=== PATIENT | female | born 1950 | race Caucasian/White ===

== ENCOUNTER 2021-11-03 09:48 | Outpatient (CLI) | payer MEDICARE, SELFPAY ==
[2021-11-03 13:57] LABS: Chloride* 102 mmol/L (96-114); Potassium* 4.2 mmol/L (3.6-5.1); Sodium* 138 mmol/L (135-149)
[2021-11-03 13:59] LABS: Cholesterol* 182 mg/dL (90-199); Creatinine* 0.6 mg/dL (0.5-1.5); Estimated Glomerular Filt Rate 95 ml/min
[2021-11-03 14:00] LABS: Blood Urea Nitrogen* 12 mg/dL (7-30); Calcium* 9.2 mg/dL (8.4-10.6); Carbon Dioxide* 29 mmol/L (20-32); Glucose* 106 mg/dL (60-115); HDL Cholesterol* 60 mg/dL (>=50); LDL Cholesterol Calculated 99 mg/dL (<100); Triglycerides* 115 mg/dL (40-149)
== END 2021-11-03 09:49 | disposition home or self-care (01) ==
PROVIDERS: PCP Family Medicine; Visit Provider Family Medicine
DX: Z00.00 Encounter for general adult medical examination without abnormal findings (principal); I10 Essential (primary) hypertension; E78.5 Hyperlipidemia, unspecified
CPT/HCPCS: 80048; 80061

== ENCOUNTER 2022-01-04 12:43 | Outpatient (CLI) | payer MEDICARE, SELFPAY ==
--- NOTE | 2022-01-04 13:20 | CRLHL7_ITS ---
For Patients: As a result of the Century Cures Act, medical imaging exams and procedure reports are released immediately into your electronic medical record. You may view this report before your referring provider. If you have questions, please contact your health care provider. BILATERAL SCREENING MAMMOGRAM WITH COMPUTER-AIDED DETECTION TECHNIQUE: CC and MLO views were obtained. These mammographic images have been obtained using full-field digital technique. These mammographic images were interpreted with the benefit of computer-aided detection. COMPARISON FILM: 11/20/19, 09/25/18, 09/21/17. FINDINGS: There are scattered areas of fibroglandular density IMPRESSION: There is no radiographic evidence for malignancy. ASSESSMENT: BI-RADS Category 1: Negative RECOMMENDATION: Routine screening mammogram in 1 year. A lay language report of this examination will be provided to the patient. Obed Reilly M.D. Diagnostic Radiologist [email or web address]/mat / be/Dictated by: Obed Reilly MD @ 01/08/2022 8:18:00 AM (Electronically Signed)
== END 2022-01-04 12:44 | disposition home or self-care (01) ==
LOC: MAMMO 12:44
PROVIDERS: PCP Family Medicine; Visit Provider Family Medicine
DX: Z12.31 Encounter for screening mammogram for malignant neoplasm of breast (principal)
CPT/HCPCS: 77063; 77067

== ENCOUNTER 2022-11-05 09:15 | Outpatient (CLI) | payer MEDICARE, SELFPAY | END 2022-11-05 09:16 | disposition home or self-care (01) | PROVIDERS: PCP Family Medicine; Visit Provider Family Medicine | DX: Z00.00 Encounter for general adult medical examination without abnormal findings (principal); I10 Essential (primary) hypertension; E78.5 Hyperlipidemia, unspecified; Z13.0 Encounter for screening for diseases of the blood and blood-forming organs and certain disorders involving the immune mechanism; Z13.89 Encounter for screening for other disorder | CPT/HCPCS: 80048; 80061 ==

== ENCOUNTER 2022-11-22 11:42 | Outpatient (CLI) | payer MEDICARE, SELFPAY ==
--- NOTE | 2022-11-22 07:54 | W.ANESCHARGE ---
Anesthesia Charges Start Date/Time Anesthesia Start Date: 11/22/22 Anesthesia Start Time: 13:21 Stop Date/Time Anesthesia Stop Date: 11/22/22 Anesthesia Stop Time: 13:57 Summary Extremes of Age - Over 70 or under 1: MDA
--- NOTE | 2022-11-22 14:01 | W.ANESCHARGE ---
Anesthesia Charges Start Date/Time Anesthesia Start Date: 11/22/22 Anesthesia Start Time: 13:21 Stop Date/Time Anesthesia Stop Date: 11/22/22 Anesthesia Stop Time: 13:57 Summary Extremes of Age - Over 70 or under 1: [employer]OR [employer]
== END 2022-11-22 11:43 | disposition home or self-care (01) ==
PROVIDERS: PCP Family Medicine; Visit Provider Surgery
DX: Z12.11 Encounter for screening for malignant neoplasm of colon (principal); D49.0 Neoplasm of unspecified behavior of digestive system; Z86.010 Personal history of colon polyps
CPT/HCPCS: 45380; 45381; 811; 88305; 88341; 88342; 99100; J2405; J2704

== ENCOUNTER 2022-12-02 15:10 | Outpatient (CLI) | payer MEDICARE, SELFPAY | END 2022-12-02 15:11 | disposition home or self-care (01) | LOC: NFLDREF 15:13 | PROVIDERS: PCP Family Medicine; Visit Provider Surgery | DX: Z01.818 Encounter for other preprocedural examination (principal); C18.9 Malignant neoplasm of colon, unspecified | CPT/HCPCS: 82378 ==

== ENCOUNTER 2022-12-03 10:08 | Outpatient (CLI) | payer MEDICARE, SELFPAY ==
--- NOTE | 2022-12-03 11:00 | CRLHL7_ITS ---
For Patients: As a result of the 21st Century Cures Act, medical imaging exams and procedure reports are released immediately into your electronic medical record. You may view this report before your referring provider. If you have questions, please contact your health care provider. Indication: Colon cancer Technique: Postcontrast CT chest, abdomen and pelvis. 57 cc Isovue 370 intravenous contrast. Please note that all CT scans at this facility use dose modulation, iterative reconstruction, and/or weight-based dosing when appropriate to reduce radiation dose to as low as reasonably achievable. Comparison: None Findings: In the chest, bilateral thyroid nodules are present measuring 1.7 cm the left and 0.8 cm on the right. No mediastinal, hilar or axillary adenopathy. Mild atherosclerotic changes noted. Calcified left hilar lymph nodes are present representing sequela of granulomatous disease. Calcified granuloma within the lingula also noted. Linear subsegmental scarring is present within both lung apices. 2 millimeter nodular density right lower lobe, 3/44. Ground-glass nodule within the right middle lobe measuring 8.8 millimeters, 3/42. Subtle sclerotic focus is present measuring 12 millimeters within the T8 vertebral body. An additional sclerotic focus is present within the T3 vertebral body. No pathologic fracture. In the abdomen, there is a subtle area of decreased density within the left hepatic lobe measuring 1.1 cm. A subcentimeter hypodensity within the right hepatic lobe is also presence measuring 7 millimeters. The adrenal glands are normal. No solid renal mass or hydronephrosis. 6 millimeters simple cyst is noted within the left kidney. The spleen is within normal limits. No hiatal hernia. Pancreatic parenchyma is normal. Normal gallbladder. Atherosclerotic changes. No aneurysm. No enlarged retroperitoneal or mesenteric lymph nodes. In the pelvis, the bladder is normal. There is a small calcified uterine fibroid. No adnexal mass. No bowel obstruction. The terminal ileum appears normal. Severe degenerative disc disease L4-5 and L5-S1 with extensive discogenic sclerosis. No compression fracture. Tiny lymph nodes are present adjacent to the posterior aspect of the ascending colon measuring less than 5 millimeters. No pelvic sidewall or inguinal adenopathy. Impression: A few tiny 5 millimeter or less lymph nodes are noted adjacent to the mid ascending colon. No bowel obstruction. There are 2 small indeterminate foci of decreased attenuation within the liver, measuring 1.1 cm in the left hepatic lobe and 7 millimeters in the right hepatic lobe. Further evaluation with liver MRI may be useful. Indeterminate ground-glass nodule in the right middle lobe measuring 8.8 millimeters. Additional 2 millimeter nodule right lower lobe is present. Indeterminate foci of increased density within the T3 and T8 vertebral bodies. PET-CT may be useful for the 8.8 millimeter ground-glass nodule within the right lung and for the T3 and T8 foci. Please note that all CT scans at this facility use dose modulation, iterative reconstruction, and/or weight-based dosing when appropriate to reduce radiation dose to as low as reasonably achievable. Dictated by Obed Reilly MD @ 12/06/2022 4:38:40 PM (Electronically Signed)
== END 2022-12-03 10:09 | disposition home or self-care (01) ==
LOC: CT 10:10
PROVIDERS: PCP Family Medicine; Visit Provider Surgery
DX: C18.9 Malignant neoplasm of colon, unspecified (principal); K76.9 Liver disease, unspecified; R91.8 Other nonspecific abnormal finding of lung field
CPT/HCPCS: 71260; 74177; Q9967

== ENCOUNTER 2022-12-17 08:21 | Outpatient (CLI) | payer MEDICARE, SELFPAY ==
--- NOTE | 2022-12-17 08:45 | CRLHL7_ITS ---
For Patients: As a result of the Century Cures Act, medical imaging exams and procedure reports are released immediately into your electronic medical record. You may view this report before your referring provider. If you have questions, please contact your health care provider. INDICATION: Colon cancer; history provided liver mets ; Liver lesions on CT of the chest, abdomen and pelvis; further assessment. COMPARISON: CT chest, abdomen and pelvis December 03, 2022. TECHNIQUE: MR of the liver without and with intravenous contrast ; Precontrast T1 and T2 weighted imaging; T2 haste imaging; diffusion weighted imaging; in and out of phase imaging; postcontrast imaging; 15 cc of dotarem contrast was injected; poor study quality on the post contrast imaging secondary to significant respiratory motion. Findings : A 1.5 x 1 cm lesion in segment 3 of the liver which has high signal on the precontrast T2 haste imaging and low signal on the precontrast T1 weighted imaging with enhancement postcontrast administration; this most likely represents a hemangioma; because of the degradation of the quality of the study postcontrast imaging, this needs further followup either with a CT or MR with contrast using hemangioma protocol. A 7 mm cyst identified in the dome of the liver. No other focal hepatic pathology. No pancreatic pathology. Gallbladder is unremarkable. No adrenal pathology. Kidneys are unremarkable. IMPRESSION: 1. 1.5 x 1 cm probable hemangioma segment 3 of the liver; Followup MR or CT with intravenous contrast using hemangioma protocol suggested at in 3 months. 2. 7 mm cyst in the dome of the liver. 3. No obvious metastatic disease identified in the liver; post contrast imaging quality is suboptimal secondary to significant respiratory motion. Dictated by Kody Boles MD @ 12/23/2022 5:01:50 AM (Electronically Signed)
== END 2022-12-17 08:22 | disposition home or self-care (01) ==
LOC: MRI 08:22
PROVIDERS: PCP Family Medicine; Visit Provider Surgery
DX: C18.9 Malignant neoplasm of colon, unspecified (principal); K76.89 Other specified diseases of liver
CPT/HCPCS: 74183; A9575

== ENCOUNTER 2022-12-23 16:15 | Outpatient (CLI) | payer MEDICARE, SELFPAY ==
--- NOTE | 2022-12-23 17:00 | CRLHL7_ITS ---
For Patients: As a result of the 21st Century Cures Act, medical imaging exams and procedure reports are released immediately into your electronic medical record. You may view this report before your referring provider. If you have questions, please contact your health care provider. EXAM: PET-CT SKULL BASE TO THIGH CLINICAL INFORMATION: 72-yo female with newly diagnosed adenocarcinoma of the ascending colon detected on surveillance colonoscopy. Patient is referred for further characterization. TECHNIQUE: Radiopharmaceutical: 12.9 mCi of 18F-FDG Intravenous injection site: RAC Uptake time: 61 minutes Blood glucose level at the time of injection: 79 mg/dL Field of view: Skull base to mid-thighs CT protocol: The low-dose, free-breathing, noncontrast CT performed as part of this study is designed for the purposes of attenuation correction and lesion localization, and it is neither sufficient, nor it should be substituted for diagnostic purposes. COMPARISON: CT chest abdomen pelvis 12/03/2022. MRI abdomen 12/17/2022 FINDINGS: Physiologic background liver standardized uptake value (SUV mean and SUV max) reported for comparison between PET studies: 2.2 and 3.1. Visualized head and neck: Physiologic uptake in the visualized portions of the brain. Bilateral thyroid cysts/nodules without suspicious uptake. For example: Low-density left thyroid nodule, 1.5 cm, SUV max 1.0 Head and neck lymph nodes: No abnormal uptake. Lungs: Biapical scarring. No abnormal left lung uptake. Lateral right middle lobe ground-glass nodule demonstrates low level uptake, 0.9 cm, SUV max 0.5 (series 202, image 80). Additional micronodules in each lung demonstrate no abnormal uptake overall considered too small to definitively characterize. Benign calcified left upper lobe nodule. No consolidation. Thoracic lymph nodes: Calcified mediastinal lymph nodes. No enlarged or hypermetabolic mediastinal, hilar or axillary lymph nodes. Other chest findings: Scattered thoracic aortic calcifications. Generalized nonfocal esophageal uptake is nonspecific, possibly reactive/inflammatory or related to reflux. Hepatobiliary: No tracer avid liver lesions. No dilated intrahepatic bile ducts. Spleen: No abnormal uptake. No splenomegaly. Pancreas: No abnormal uptake. Adrenals: Similar bilateral adrenal configuration with variable uptake. For example: Left adrenal gland SUV max 3.0. Right adrenal gland SUV max 2.8. Nonspecific. Left adrenal uptake approaches background liver SUV max but does not exceed. Kidneys and bladder: No abnormal uptake or obstruction. Nondistended bladder with generalized wall thickening limits evaluation. Bowel and peritoneum: No suspicious gastric or small bowel uptake. Terminal ileum is unremarkable. There is uptake throughout the ascending colon extending to the hepatic flexure. More intense uptake associated with mild wall thickening is noted in the mid ascending colon potentially representing the site of recent biopsy positive for adenocarcinoma, SUV max 11.9 (fused image 156). Correlate with colonoscopy results and final pathology report. Pelvic organs: No abnormal uptake. Uterine calcifications may represent small fibroids. Abdominopelvic lymph nodes: No enlarged hypermetabolic abdominopelvic lymph nodes. Musculoskeletal, soft tissues, skin: No suspicious tracer avid osseous lesions. Degenerative type uptake within the right shoulder and spine. Other: Scattered aortoiliac atherosclerotic vascular calcifications. IMPRESSION: 1. Increased uptake throughout the ascending colon with mild wall thickening and intense uptake evident in the mid ascending colon potentially representing the site of recent positive biopsy for primary adenocarcinoma of the colon. No enlarged or hypermetabolic abdominal, retroperitoneal or pelvic lymph nodes. 2. Lateral right middle lobe ground-glass nodule with low level uptake is indeterminate. Attention on short-term imaging follow-up. 3. Bilateral cysts/nodules in each lobe of the thyroid without asymmetric or suspicious uptake. Additional ultrasound imaging can be considered. 4. No abnormal uptake in the neck, solid organs of the upper abdomen or osseous structures. 5. Other nonacute findings as detailed in the body of the report. Dictated by Ted Jacobo MD @ 01/01/2023 10:10:41 PM (Electronically Signed)
== END 2022-12-23 16:16 | disposition home or self-care (01) ==
LOC: RAD 16:16
PROVIDERS: PCP Family Medicine; Visit Provider Surgery
DX: C18.2 Malignant neoplasm of ascending colon (principal); E04.1 Nontoxic single thyroid nodule
CPT/HCPCS: 78815; A9552

== ENCOUNTER 2022-12-31 15:12 | Outpatient (CLI) | payer MEDICARE, SELFPAY | END 2022-12-31 15:13 | disposition home or self-care (01) | LOC: LONREF 15:13 | PROVIDERS: PCP Family Medicine; Visit Provider Family Medicine | DX: Z01.818 Encounter for other preprocedural examination (principal); C18.9 Malignant neoplasm of colon, unspecified | CPT/HCPCS: 80053 ==

== ENCOUNTER 2023-01-20 06:58 | Inpatient (IN) | payer MEDICARE, SELFPAY ==
[2023-01-20] VITALS (23 sets, daily range): BP systolic 97–122; BP diastolic 49–58; PULSE 71–100; RESP 12–16; TEMP 36.1–37.2; O2SAT 92–99; BMI 23.2
[2023-01-20] MEDS: SODIUM CHLORIDE 0.9 % (FLUSH) 10 ML SYRINGE IVF (07:45)
[2023-01-20] MEDS: LACTATED RINGERS 1000 ML 1,000 ML 100 ML IV ×3 (07:45→11:16)
[2023-01-20] MEDS: ERTAPENEM 1 GM inj IVPB (08:32)
[2023-01-20] MEDS: BUPIVACAINE 0.5% 30 ML 4 ML INJECTION (08:58)
--- NOTE | 2023-01-20 09:13 | SUR.OPER ---
PATIENT QUESTIONS ANSWERED SATISFACTORILY PREOPERATIVELY. PATIENT BROUGHT TO OR #4 PER CART. Patient positioned supine on OR #4 bed. The perioperative team supported arms bilaterally on arm boards. Final approval of positioning by surgeon.
--- NOTE | 2023-01-20 09:32 | P.NB_ITS ---
Nerve Block Nerve Block Time Seen by Provider: 08:29 Date Seen: 01/20/23 Type of block requested by surgeon for post-operative analgesia: TAP Side: bilateral Time out performed: Yes Verification of patient name: Yes Verification of date of : Yes Site marking: site marked Name of person performing procedure: Enrique Continuous monitoring Was continuous monitoring of O2 sat, B/P, color television console monitor, recorded every 15 minutes?: Yes Procedure Checklist: sterile prep, needles and gloves Ultrasound guided. Images saved: Yes Medications given in 5ml increments after negative aspiration: Marcaine %: 0.25 mL: 30 Needle gauge: 20 and Exparel mL: 10 Patient tolerated procedure well: Yes Additional comments: Needle noted adjacent to nerve Block Charges Block Charge (with Pro Fee): TAP Bilateral Use of Ultrasound Machine for Block: Yes- US Guidance/pain block
--- NOTE | 2023-01-20 09:32 | W.ANESCHARGE ---
Anesthesia Charges Start Date/Time Anesthesia Start Date: 01/20/23 Anesthesia Start Time: 08:20 Stop Date/Time Anesthesia Stop Date: 01/20/23 Anesthesia Stop Time: 11:36 Summary Extremes of Age - Over 70 or under 1: MDA
[2023-01-20] MEDS: BUPIVACAINE 0.25% 30 ML 6 ML INJECTION (11:07)
--- NOTE | 2023-01-20 11:15 | P.GSOP_ITS ---
Operative Note Pre-op diagnosis: Right-sided colon adenocarcinoma Post-op diagnosis: Same Type of Procedure: Laparoscopic right hemicolectomy Indications: The patient is a 72-year-old female who was found to have a adenocarcinoma of her right colon seen on colonoscopy. Staging workup did not reveal metastatic disease. Colectomy was recommended. Please see Dr. Perdomo's documentation of p re-operative discussion. Procedure Description: I arrived to the OR after Dr. Perdomo had placed the ports. I assisted with retraction of the cecum anteriorly while Dr. Perdomo dissected out the ileocolic pedicle. Once the vessels were visible, This was divided with a vascular load Endo-TAM stapler. There was a 2nd small vessel posterior to the 1st which was also divided with a vascular load staple. The staple lines were inspected for bleeding. Hemostasis appeared excellent. Dr. Perdomo then developed the retroperitoneal plane starting medially and progressing laterally. I again provided retraction of the cecum anteriorly while she dissected retroperitoneally. The duodenum was identified as the medial aspect of the dissection plane. Once this was dissected out, attention was turned and inferolaterally. First, Dr. Perdomo placed a Ray-Malka in the abdomen in the posterior dissection space to help identify the plane of dissection from the lateral aspect. I then retracted the cecum superiorly while Dr. Perdomo took down the lateral abdominal attachments of the cecum, appendix and terminal ileum. She reached her previous dissection plane. She took this up to the hepatic flexure. Again, I reflected the cecum and ascending colon medially to facilitate this. Once this was done we turned our attention to the superior portion of dissec tion. Then I grasped gastrocolic ligament just below the stomach and Dr. Perdomo grasped at the transverse colon. This was lifted up and she incised this using Harmonic scalpel. There was adhesions between the colon and the gallbladder in the right upper quadrant, however Dr. Perdomo was able to carefully dissect through these attachments using the Harmonic scalpel. I provided gentle retraction of the gallbladder. Once this was done, Dr. Perdomo was able to connect the posterior dissection with the superior dissection by completely dividing the with the fibers between the colon and retroperitoneum in the area of the duodenum. Once this was done, now with the dissection complete, I grasped the cecum and the sponge that was placed in the abdomen. Dr. Perdomo then created a periumbilical incision and dissected through the subcutaneous fat and fascia using cautery. The abdomen was entered. An Michel wound retractor was placed in the wound. I then delivered the specimen and the sponge through the wound. Dr. Frankel identified the middle colic vein and the right branch. She identified the tumor by palpation and then an area of healthy bowel on the transverse colon that was greater than 5 cm distal to the tattoo. Dr. Perdomo fully dissected the pericolonic fat away from the segment of bowel. I divided this with cautery. Once this was done she created a mesenteric window and through this fired a blue load TAM stapler. A small amount of bleeding on the mesentery was controlled with suture. Once this was divided, the mesentery was then divided by Dr. Perdomo using clamps and ties. She then identified well perfused area of ileum approximately 10 cm proximal to the ileocecal valve. Mesenteric window was created and again she fired a blue load TAM stapler across the bowel. The staple line was not bleeding. She then divided the mesentery again with clamps and ties. The specimen was passed off the field. This was later examined by Dr. Perdomo and found to contain the tumor. At this point we prepared to create the anastomosis. Towels were laid around the wound opening. Dr. Perdomo placed the 2 ends of bowel together. A stay stitch was placed. She then created a colotomy and enterotomy in each end of the bowel and through this was passed a blue load stapler. This was positioned to create approximately 80 cm anastomosis. I fired the stapler after confirming that th ere was no intervening bowel or other intra-abdominal structures between the ends of the staple and after confirming the staplers position on each end of the bowel. Dr. Perdomo then placed 2 crotch stitches. I removed the stapler and the anastomosis was examined for bleeding. There was none. I then assisted in exposure well Dr. Perdomo closed the common enterotomy with interrupted Lembert sutures. Once this was done the anastomosis was examined for patency which was excellent. This was then placed back into the abdomen. A clean set of instruments was obtained. Outer gloves were also exchanged. Dr. Perdomo then closed the fascia using 1. PDS in a running fashion. The abdomen was again insufflated and examined for hemostasis. There was no significant bleeding noted in the abdomen. This point I turned the case over to Dr. Perdomo. Sterile dressings were then applied. ? The patient was then woken and transported to the recovery area in stable condition. ? The patient tolerated the procedure well. Findings: Tumor noted in mid ascending colon. Anesthesia: GETA Surgeon: Mabel Perdomo MD Co-Surgeon: Kerrie Godinez MD Estimated blood loss (mL): 20 Additional Specimen Information: Right colon and terminal ileum Condition: stable Disposition: PACU Date of procedure: 01/20/23 Colon Resection Operation Performed with Curative Intent: Yes Tumor location: Ascending colon Extent of colon and vascular resection: Right hemicolectomy-ileocolic, right colic (if present)
--- NOTE | 2023-01-20 11:42 | P.ANES_ITS ---
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
--- NOTE | 2023-01-20 11:53 | P.GSOP_ITS ---
Operative Note Pre-op diagnosis: Adenocarcinoma of the colon, ascending Post-op diagnosis: Same Type of Procedure: Laparoscopic right hemicolectomy with extracorporeal anastomosis Indications: Patient is a 72-year-old female who presented to clinic with new diagnosis adenocarcinoma of the colon. Please see consultation note for full workup and discussion regarding treatment options. Risks and benefits of operative intervention were discussed at length with the patient. Risks included but was not limited to: Bleeding, infection, risk of damage to surrounding structures, possible need for additional procedures, possible need to convert to an open operation and postoperative complications such as pneumonia, pulmonary emboli or DE. All questions and concerns were addressed with the patient agreeing to proceed. Procedure Description: After discussing the risks and benefits of the procedure, the patient signed informed consent.? The operative site was marked and the patient was brought to the operating room and placed on the operating table in supine position.? Care was taken to pad the patient's pressure points.?? The patient was then intubated by anesthesia.? A tap block was placed by Anesthesia, to assist with postoperative pain. A Moser was placed under sterile conditions.? The operative site was then prepped and draped in the usual sterile fashion.? A time-out was then performed. A 5 mm Visiport was used to access the abdomen in the left upper quadrant. This was done under direct visualization. The abdomen was then insufflated and briefly surveyed, with no evidence of injury. I placed an additional 5 mm port just superior to the umbilicus and inferior suprapubic. A 12 mm port was placed in the left lower quadrant. The patient was then placed in right side up and Trendelenburg position. The small bowel was displaced from the pelvis and placed on the left side of the abdomen. At this point in the operation Dr. Godinez did scrub into the procedure. With Dr. Godinez assisting with retraction, an epiploic appendage of the cecum was used to retract up the cecum and terminal ileum lateral and towards the abdominal wall. This retraction allowed for identification of the ileocolic vascular pedicle. The peritoneum of the mesentery was incised with the Harmonic device. I then continued dissection of the peritoneum along the mesentery overlying the vessels. The ileocolic artery was identified and carefully dissected out. I then used a laparoscopic vascular staple load to transect the ileocolic artery near the takeoff from the IVC. The ileocolic vein was dissected out in a similar manner and transected with an additional vascular staple load. Hemostasis of the vascular pedicle was excellent. With Dr. Godinez assisting with retraction I then continued dissecting medially underneath the mesentery cephalad and laterally. The duodenum was initially difficult to identify, given the presence of tattoo within the abdomen, but we were eventually able to identify it as the medial border of our dissection plane and care was taken to make sure that it was safe from inadvertent injury. The dissection was continued cephalad until the border of the liver was identified. At this point I placed a Ray-Malka into the abdomen and into this dissected space. We then focused our retraction and dissection laterally along the white line of Toldt. Dr. Godinez assisted with retraction of the ascending colon medially while I dissected free the lateral attachments starting at the terminal ileum and ex tending towards the hepatic flexure. I was able to easily identify the medial plane of dissection and connect this laterally. While taking down the hepatic flexure the transverse colon was stuck with scar tissue underneath the liver into the gallbladder, making this portion of the dissection difficult. The patient was placed in reverse Trendelenburg. We carefully dissected free the transverse colon from the gallbladder and the underlying aspect of the liver, with no evidence of injury to either of these structures. The transverse colon was taken off completely from the underlying retroperitoneal structures. The omentum was then taken off the superior aspect of the transverse colon and the lesser sac was entered. Again the duodenum was identified and care was ensured that it stayed out of our operative field. We then continued this dissection laterally to connect with what had previously been done. At this point the hepatic flexure was completely mobilized, as well as the ascending colon. Once the dissection was complete Dr. Godinez used a grasper to grasp the cecum and the sponge that was within the abdomen. I created a periumbilical incision and dissected through the subcutaneous fat and fascia with cautery. The abdomen was entered and and a medium Michel wound retractor was placed in the wound. We were then able to easily deliver the specimen and the sponge through the wound. The specimen was examined and the right branch of the middle colic artery and vein identified. This was doubly ligated with silk suture. The tumor was easily palpated in the ascending colon, and appeared greater than 5 cm distal and proximal to our margins. I dissected the pericolonic fat away from the transverse colon with cautery. A mesenteric window was created and the transver se colon divided with 100 mm blue load TAM stapler. A small amount of bleeding on the mesentery was controlled with a 3-0 Vicryl stick tie. An area of the well perfused ileum was then identified as our proximal margin. A mesenteric window was created and the bowel was transected with 100 mm blue load TAM hand- held stapler. The staple line was examined with adequate hemostasis. The mesentery was then sequentially ligated with clamps and 3-0 silk ties. The specimen was passed off the field and examined on the back table. The tumor was identified with margins adequate. At this point we prepared to create the anastomosis. Towels were laid around the open wound. The 2 ends of the bowel were gently brought together and a stay stitch was placed. I then created a colotomy and enterotomy on each limb of the bowel and passed a blue load stapler. This was position to create an anastomosis. Dr. Godinez fired the stapler after confirming there was no intervening bowel or other intra-abdominal structures. I then placed 2 crotch stitches to removed tension on the staple line. The stapler was gently removed and the anastomosis was examined for bleeding, for which there was none. Dr. Godinez then assisted with exposure well I closed the common enterotomy with interrupted Lembert sutures of 0 silk. The anastomosis was then examined for patency, which was excellent. The anastomosis was then placed back into the abdomen. All dirty equipment was taken off of the operative field, our outer gloves were removed and a clean set of instruments obtained. I closed the fascia of the midline incision with two running 1 PDS suture. A wet lap was placed within the incision and the abdomen was insufflated with laparoscopic equipment turned back on. The abdomen was briefly surveyed with no bleeding noted within the abdomen. The 12 mm left lower quadrant port was closed with an 0 Vicryl stitch via the Dylan-Heather. All other ports removed under direct visualization and the abdomen desufflated. The midline incision was closed in layers of interrupted 3 0 Vicryl and running 4-0 Monocryl. All other port sites were closed with 4-0 Monocryl. Sterile dressings were then applied. ? The patient was then woken and transported to the recovery area in stable condition. ? The patient tolerated the procedure well. Findings: Adenocarcinoma of the ascending colon. Anesthesia: GETA Surgeon: Mabel Perdomo MD Co-Surgeon: Kerrie Godinez MD Estimated blood loss (mL): 20 Additional Specimen Information: Right colon and terminal ileum Condition: stable Disposition: PACU Date of procedure: 01/20/23 Colon Resection Operation Performed with Curative Intent: Yes Tumor location: Ascending colon Extent of colon and vascular resection: Right hemicolectomy-ileocolic, right colic (if present)
[2023-01-20] MEDS: ONDANSETRON 2 MG/ML inj IVP ×2 (14:00→19:06)
[2023-01-20] MEDS: SIMVASTATIN 10 MG TABLET PO (18:54)
[2023-01-20] MEDS: HYDROmorphone 0.5 mg/0.5 ml inj IVP (18:54)
[2023-01-20] MEDS: 0.9 % SODIUM CHLORIDE 500 ML 500 ML IV (20:01)
[2023-01-20] MEDS: SCOPOLAMINE 1 MG/3 DAY PATCH 1 PATCH TRANSDERMA (21:28)
[2023-01-21] VITALS (11 sets, daily range): BP systolic 86–101; BP diastolic 33–48; PULSE 70–95; RESP 15–18; TEMP 36.6–37.8; O2SAT 91–98
[2023-01-21] MEDS: HYDROmorphone 0.5 mg/0.5 ml inj IVP ×5 (00:05→18:00)
[2023-01-21] MEDS: LACTATED RINGERS 1000 ML 1,000 ML 75 ML IV (00:05)
--- NOTE | 2023-01-21 06:53 | PC.NURSE ---
End of Shift: Patient pleasant and cooperative. Afebrile. C/o nausea, PRN Zofran given without relief, updated MD. EKG done and scopolamine patch order and placed behind right ear. Rating pain in abdomen up to 6-7/10 and PRN Dilaudid given x3. Up to chair and bathroom with SBA. 500 mL bolus given x1 d/t low urine output at 2000. Steri-strips to abdomen intact with old dried drainage.
[2023-01-21 06:59] LABS: Basophils Percent Auto 0.2 % (0.0-3.0); Hematocrit 32.8 % (33.0-51.0); Hemoglobin* 10.4 gm/dL (12.0-16.0); Immature Granulocytes Pct Auto 0.2 %; Lymphocytes Percent Auto 10.9 % (20-44); Mean Corpuscular HGB Conc 32 gm/dL (32-36); Mean Corpuscular Hemoglobin 28 pg (26-34); Mean Corpuscular Volume 88 fL (80-100); Monocytes Percent Auto 9.6 % (0.0-11.0); Neutrophils Percent Auto 79.1 % (42.0-72.0); Platelet Count* 288 K/uL (140-440); RDW Coefficient of Variation % 12.7 % (11.5-15.5); Red Blood Count 3.75 m/uL (4.00-5.20); White Blood Count* 12.97 K/uL (4.50-11.00)
[2023-01-21 07:04] LABS: Slide Review Reflex No
[2023-01-21 07:09] LABS: Chloride* 105 mmol/L (96-114)
[2023-01-21 07:10] LABS: Sodium* 138 mmol/L (135-149)
[2023-01-21 07:12] LABS: Creatinine* 0.7 mg/dL (0.5-1.5); Est. Creatinine Clearance* 41.26; Estimated Glomerular Filt Rate 91 ml/min
[2023-01-21 07:13] LABS: Anion Gap 4 mEq/L (7-15); Blood Urea Nitrogen* 7 mg/dL (7-30); Carbon Dioxide* 29 mmol/L (20-32); Glucose* 96 mg/dL (60-115)
[2023-01-21 07:14] LABS: Calcium* 8.1 mg/dL (8.4-10.6)
[2023-01-21] MEDS: lisinopriL 10 MG TABLET PO ×2 (08:32→08:34)
[2023-01-21] MEDS: CARBOXYMETHYLCELLULOSE (REFRESH PLUS) TEARS 1 DROP EYE-BOTH (08:34)
[2023-01-21] MEDS: 0.9 % SODIUM CHLORIDE 500 ML 500 ML IV ×2 (12:03→14:23)
--- NOTE | 2023-01-21 12:53 | PM.GSPN ---
Subjective Subjective Date Seen: 01/21/23 Patient reports: other Interval history: Patient is doing okay this morning. She does have some ?aching? abdominal pain, controlled with pain medication. Her biggest complaint yesterday was nausea after anesthesia, this is significantly improved today. No emesis and is tolerating clears. She has not yet passed gas or had a bowel movement. She has been up to walk to the bathroom, has not yet walked the halls. Exam Narrative: Exam Narrative: General: Alert and oriented, no acute distress. Sitting comfortably in a chair Abdomen: Soft, appropriately tender at incision sites with no significant distention, guarding or rebound. Steri-Strips are clean/dry/intact Const: Vital Signs, click to edit/add: Vital Signs - 24 hr 01/20/23 13:00 01/20/23 13:15 01/20/23 13:30 Temperature 97.0 F L Pulse Rate [Right Pulse Oximeter] 85 97 90 Respiratory Rate 16 16 16 Blood Pressure [Le ft Arm] 101/50 L 98/50 L 103/50 L Blood Pressure [Ri ght Arm] Pulse Oximetry 95 95 96 Oxygen Delivery Me thod Room Air Room Air Room Air 01/20/23 14:00 01/20/23 14:30 01/20/23 15:00 Temperature 97.1 F L 97.6 F Pulse Rate [Right Pulse Oximeter] 95 88 88 Respiratory Rate 16 16 16 Blood Pressure [Le ft Arm] 106/52 L 104/57 L 101/50 L Blood Pressure [Ri ght Arm] Pulse Oximetry 94 96 95 Oxygen Delivery Me thod Room Air Room Air Room Air 01/20/23 16:00 01/20/23 17:00 01/20/23 18:00 Temperature 97.7 F 98.8 F 97.4 F L Pulse Rate [Right Pulse Oximeter] 86 90 96 Respiratory Rate 16 16 16 Blood Pressure [Le ft Arm] 106/53 L 106/52 L 103/58 L Blood Pressure [Ri ght Arm] Pulse Oximetry 99 99 98 Oxygen Delivery Me thod Room Air Room Air Room Air 01/20/23 23:00 01/21/23 03:00 01/21/23 08:15 Temperature 97.9 F 97.9 F 98.5 F Pulse Rate [Right Pulse Oximeter] 82 83 90 Respiratory Rate 16 16 16 Blood Pressure [Le ft Arm] Blood Pressure [Ri ght Arm] 110/56 L 100/48 L 101/45 L Pulse Oximetry 95 95 98 Oxygen Delivery Me thod Room Air Room Air Room Air 01/21/23 11:28 01/21/23 11:42 Temperature 98.5 F Pulse Rate [Right Pulse Oximeter] 80 85 Respiratory Rate 16 Blood Pressure [Le ft Arm] Blood Pressure [Ri ght Arm] 86/35 L 89/42 L Pulse Oximetry 96 Oxygen Delivery Me thod Room Air Labs/Imaging Labs Labs: Postoperative leukocytosis (12.9). Hemoglobin 10.4, was last 12.1 on 12/31. B M P within normal limits. Imaging Imaging: No new imaging Progress Note: A&P Assessment and plan (1) S/P right hemicolectomy: Status: Acute Assessment and Plan: Patient is a 72-year-old female, postop day 1 right hemicolectomy for adenocarcinoma of the ascending colon. She did have a mild drop in her hemoglobin (12.4--10.1), this does likely represent intraoperative blood loss. Her vital signs were stable overnight. This morning she had some low systolic pressures (89) and was mildly symptomatic when standing. A 500 mL fluid bolus was given. Will see how patient responds to fluid. If she continues to be symptomatic would recheck hemoglobin. Low concern at this time for ongoing bleeding, given benign abdomen on exam, but will watch closely. Will hold Lovenox prophylaxis at this time. She has been tolerating clear liquids, awaiting return of bowel function before advancing. Initial nausea from the anesthetics has subsided. She still has a scopolamine patch in place, will plan to remove that this evening. -clear liquids -IV and p.o. pain meds as needed -continue to watch vitals and evaluate for orthostatic hypotension following fluid bolus -ambulation with assist to minimize risk of falls -SCDs for DVT prophylaxis, will hold on Lovenox at this time (2) Adenomatous polyp of colon: Status: Acute
[2023-01-21 13:51] LABS: Hemoglobin* 9.7 gm/dL (12.0-16.0)
[2023-01-21] MEDS: LACTATED RINGERS 1000 ML 1,000 ML 125 ML IV ×2 (15:50→23:34)
[2023-01-21 17:00] LABS: Appearance Urine Clear (Clear); Bilirubin Urine Negative (Negative); Blood Urine Trace-intact (Negative); Color Urine Yellow (Yellow); Glucose Urine Negative (Negative); Ketones Urine Negative (Negative); Leukocyte Esterase Urine Trace (Negative); Nitrite Urine Negative (Negative); Protein Urine Negative (Negative); Specific Gravity Urine 1.025 (1.000-1.030); Urobilinogen Urine 0.2 (0.2-1.0); pH Urine 5.5 (5.0-8.5)
[2023-01-21 17:14] LABS: Bacteria Urine Few; Mucus Urine Few; Squamous Epithelial Cell Urine Few (None-Few)
[2023-01-21] MEDS: SIMVASTATIN 10 MG TABLET PO (17:59)
[2023-01-21] MEDS: ACETAMINOPHEN 325 MG TABLET 650 MG PO (17:59)
[2023-01-21] MEDS: ONDANSETRON 2 MG/ML inj IVP (18:18)
--- NOTE | 2023-01-21 18:41 | PC.NURSE ---
End of shift.. Patient is pleasant and cooperative through out the day. Clear liquid diet remains in place.. Bowel sounds active in Left quadrants.. hypoactive in R quadrants.. PRN IV Dilaudid given multiple times for pain control when she rated her pain at 8/10.. adequate relief after administration.. rated at 4/10. Throughout the day she had symptomatic hypotension when she was up ambulating... Dr Perdomo was notified scopolamine patch was removed and she ordered 1 500cc Normal saline bolus. BP did not increase ... another 500 cc bolus was ordered. Minimal results once again.. Dr Perdomo was notified and she increased her LR to 125 hr. This evening she broke a slight temperature of 100.0. Tylenol was given. When administering Dilaudid it needs to be pushed very slow (3min) she is very sensitive to it. With the last administration I gave PRN IV Zofran due to reports of feeling woozy after Dilaudid administration. 3 lap sites CDI with steri strips. Midline incision as well intact with steri strips and old blood. Up ad christiano as tolerated by patient. SCD's are on when she is in the bed. She states she feels most comfortable in bed. Calls appropriately.. Ice pack to abdomen. UA was also obtained today and resulted.
[2023-01-21] MEDS: IBUPROFEN 600 MG TABLET PO (21:19)
[2023-01-21] MEDS: HYDROCODONE-ACETAMIN 5-325 MG 1 TAB PO (21:19)
[2023-01-22 03:00] VITALS: BP 84/42; PULSE 72; RESP 14; TEMP 36.7; O2SAT 94
[2023-01-22] MEDS: HYDROCODONE-ACETAMIN 5-325 MG 1 TAB PO ×4 (03:05→20:26)
--- NOTE | 2023-01-22 04:39 | PC.NURSE ---
Call placed to Dr. Perdomo to update regarding continued low blood pressure readings. Per Dr. Perdomo, call signal constructor for continued SBP <80. Patient updated regarding surgeons recommendations.
[2023-01-22 08:00] VITALS: BP 99/53; PULSE 80; RESP 16; TEMP 36.9; O2SAT 96
[2023-01-22] MEDS: ACETAMINOPHEN 325 MG TABLET 650 MG PO (08:18)
[2023-01-22] MEDS: CARBOXYMETHYLCELLULOSE (REFRESH PLUS) TEARS 1 DROP EYE-BOTH (08:22)
[2023-01-22 09:06] LABS: Basophils Absolute Auto 0.02 K/uL (0.00-0.30); Basophils Percent Auto 0.2 % (0.0-3.0); Eosinophils Absolute Auto 0.01 K/uL (0.00-0.50); Eosinophils Percent Auto 0.1 % (0.0-7.0); Hematocrit 31.1 % (33.0-51.0); Hemoglobin* 9.5 gm/dL (12.0-16.0); Immature Granulocytes Abs Auto 0.02 K/uL (0.00-0.30); Immature Granulocytes Pct Auto 0.2 %; Lymphocytes Percent Auto 8.6 % (20-44); Mean Corpuscular HGB Conc 31 gm/dL (32-36); Mean Corpuscular Hemoglobin 28 pg (26-34); Mean Corpuscular Volume 91 fL (80-100); Monocytes Percent Auto 8.4 % (0.0-11.0); Neutrophils Percent Auto 82.5 % (42.0-72.0); Platelet Count* 253 K/uL (140-440); Red Blood Count 3.43 m/uL (4.00-5.20); White Blood Count* 9.87 K/uL (4.50-11.00)
[2023-01-22 09:15] LABS: Slide Review Reflex No
--- NOTE | 2023-01-22 10:44 | PM.GSPN ---
Subjective Subjective Date Seen: 01/22/23 Interval history: Patient is doing well this morning. Feels steady on her feet and denies any further nausea or dizziness. Has been voiding without difficulty, but still experiencing some burning sensation. Did have a large liquid stool early this morning with passage of gas. She is feeling hungry today. Pain is well controlled. No other concerns. Exam Narrative: Exam Narrative: Gen: alert and oreinted, NAD Abdomen: soft, appropriate tenderness over incision sites. Steri strips c//d/i. Non distended. Const: Vital Signs, click to edit/add: Vital Signs - 24 hr 01/21/23 11:28 01/21/23 11:42 01/21/23 13:16 Temperature 98.5 F Pulse Rate [Right Pulse Oximeter] 80 85 89 Respiratory Rate 16 16 Blood Pressure [Ri ght Arm] 86/35 L 89/42 L 93/33 L Pulse Oximetry 96 95 Oxygen Delivery Me thod Room Air 01/21/23 15:36 01/21/23 16:00 01/21/23 17:40 Temperature 99.0 F 99.5 F 100.0 F H Pulse Rate [Right Pulse Oximeter] 94 95 Respiratory Rate 16 18 Blood Pressure [Ri ght Arm] 86/40 L 93/38 L 95/37 L Pulse Oximetry 97 96 Oxygen Delivery Me thod Room Air Room Air 01/21/23 17:59 01/21/23 21:00 01/21/23 23:00 Temperature 100.0 F H 99.0 F 98.5 F Pulse Rate [Right Pulse Oximeter] 70 80 Respiratory Rate 18 15 Blood Pressure [Ri ght Arm] 96/42 L 94/42 L Pulse Oximetry 94 91 Oxygen Delivery Me thod Room Air Room Air 01/22/23 03:00 01/22/23 08:00 Temperature 98.1 F 98.4 F Pulse Rate [Right Pulse Oximeter] 72 80 Respiratory Rate 14 16 Blood Pressure [Ri ght Arm] 84/42 L 99/53 L Pulse Oximetry 94 96 Oxygen Delivery Me thod Room Air Room Air Labs/Imaging Labs Labs: Hgb stable, no leukocytosis Progress Note: A&P Assessment and plan (1) S/P right hemicolectomy: Status: Acute Assessment and Plan: Patient is a 72-year-old female, postop day 2 right hemicolectomy for adenocarcinoma of the ascending colon. VSS, no concern for hypotension. Patient with low grade fever (100), likely secondary to atelectasis. Encourage IS. A UA was done and shows only small amount of bacteria and LE. No indication for antibiotics at this time. Hgb stable this morning. Will start Lovenox ppx. Patient will be discharged home on 4 week course. Has had a large bowel movement and is feeling hungry. Will ADAT today. Anticipate discharge tomorrow. -ADAT -p.o. pain meds as needed -ambulation the [place] x6 -SCDs for DVT prophylaxis, Lovenox 40 daily. Will start patient education. (2) Adenomatous polyp of colon: Status: Acute
[2023-01-22 10:48] VITALS: BP 110/47; PULSE 80; RESP 16; TEMP 37.3; O2SAT 96
[2023-01-22 15:00] VITALS: BP 108/55; PULSE 107; RESP 16; TEMP 38.1; O2SAT 96
[2023-01-22] MEDS: ENOXAPARIN 40 MG/0.4 ML INJ SUBCUT (15:17)
[2023-01-22] MEDS: SIMVASTATIN 10 MG TABLET PO (17:13)
--- NOTE | 2023-01-22 18:49 | PC.NURSE ---
End of Shift: Patient is pleasant.. reported moderate pain on and off throughout the day PRN narco given multiple times.. with good relief. Saline locked per Dr Hardy orders after seeing the patient. Advanced her diet to full liquid for lunch she tolerated it well with no N/V. Had a few crackers with dinner for solids. New IV was placed in R hand due to other one becoming swollen. I educated her on Lovenox education since she will be on it for 4 weeks. Teach back method was taught and completed with demonstration as well. Also printed education on blood thinners and subcutaneous injections. No BM this shift. Calls appropriately. Completed 3 walks around the unit today as well. No other concerns at this time.
[2023-01-22 19:00] VITALS: BP 108/47; PULSE 97; RESP 16; TEMP 37.6; O2SAT 98
[2023-01-22] MEDS: IBUPROFEN 600 MG TABLET PO (20:27)
[2023-01-22 23:00] VITALS: BP 108/47; PULSE 79; RESP 14; TEMP 37; O2SAT 94
[2023-01-23 03:00] VITALS: BP 83/52; PULSE 73; RESP 16; TEMP 36.3; O2SAT 95
--- NOTE | 2023-01-23 05:33 | PC.NURSE ---
End of shift [id number]: patient alert and oriented x 4. Pleasant and cooperative with cares. Pain to abdomen well managed with prn medication, ice and repositioning. Bowel sounds active x 4 quadrants, denies any nausea or vomiting. Continues with full liquid diet, commercial lines underwriter offered patient crackers but declined. IV to right wrist infiltrated, IV removed. Call placed to Dr. Perdomo regarding IV, per MD ok to keep IV out. Ambulates independently.
[2023-01-23 07:39] VITALS: BP 100/54; PULSE 79; RESP 16; TEMP 36.9; O2SAT 96
[2023-01-23] MEDS: ACETAMINOPHEN 325 MG TABLET 650 MG PO (07:48)
--- NOTE | 2023-01-23 10:48 | PM.DS1 ---
DS: Providers Provider Date Seen: 01/23/23 Date of admission: 01/20/23 06:58 Primary care physician: Dionisio Mendoza MD Admitting Clinician: Mabel Perdomo MD Attending Physician on discharge: Mabel Perdomo MD DS: Summary Hospital Course Hospital Course: Patient was admitted to the hospital following a laparoscopic right hemicolectomy for adenocarcinoma of the colon. Postoperatively on POD1 she did have some mild hypotension, which improved with fluid boluses. She had evidence of return of bowel function on postop day 2 and her diet was slowly advanced to regular. Low-grade fever was evident the night before discharge (100.6). Patient with a normal UA, no growth on urine culture. Utilizing IS and maintained on room air. Abdomen benign with evidence of return of bowel function. Fever curve improved overnight in the morning of discharge. No evidence of leukocytosis. No antibiotics were prescribed no further workup performed. She was also started on subcutaneous Lovenox, with a plan to continue at home to complete a four-week course. At the time of discharge she was ambulating independently, voiding without difficulty, pain was well controlled with oral pain medication. She had return of bowel function and was tolerating regular diet. She had Education regarding Lovenox injections and felt comfortable performing at home. Successfully discharged to home with plan for 2 week follow-up in clinic. Time Spent with Patient Time attestation: Total time spent providing and/or coordinating discharge services: Exam Narrative: Exam Narrative: General: Alert and oriented, no acute distress Abdomen: Soft, nontender nondistended. Steri-Strips clean/dry/intact. Const: Vital Signs, click to edit/add: Vital Signs - 24 hr 01/22/23 15:00 01/22/23 19:00 01/22/23 23:00 Temperature 100.6 F H 99.7 F H 98.6 F Pulse Rate [Right Pulse Oximeter] 107 H 97 79 Respiratory Rate 16 16 14 Blood Pressure [Ri ght Arm] 108/55 L 108/47 L 108/47 L Pulse Oximetry 96 98 94 Oxygen Delivery Me thod Room Air Room Air Room Air 01/23/23 03:00 01/23/23 07:39 Temperature 97.4 F L 98.5 F Pulse Rate [Right Pulse Oximeter] 73 79 Respiratory Rate 16 16 Blood Pressure [Ri ght Arm] 83/52 L 100/54 L Pulse Oximetry 95 96 Oxygen Delivery Me thod Room Air Room Air DS: Data Data Completed and Pending Labs on day of discharge: Preliminary micro results at discharge 01/21/23 Unknown Urine Culture - Preliminary Urine,Clean Catch NO GROWTH AFTER 24 HOURS Discharge Plan Discharge Disposition: Home, Self-Care Date of Admission: 01/20/23 06:58 Attending Provider on Discharge: Mabel Perdomo Primary Care Provider: Dionisio Mendoza Condition: Improved Anticipated Discharge Date/Time: 01/23/23 12:00 Discharge Medications: New enoxaparin [Lovenox] 40 mg/0.4 mL syringe 40 mg subcut DAILY 28 Days Qty: 28 0RF hydrocodone-acetaminophen 5-325 mg tablet 1 tab PO Q6H PRN (Reason: pain) Qty: 10 0RF Continued PreserVision AREDS-2 250-90-40-1 mg capsule 1 tab PO BID calcium-vitamin D3-vitamin K [Viactiv] 650 mg-12.5 mcg-40 mcg tablet,chewable 1 tab PO DAILY Systane Balance 0.6 % drops 1 drp ophthalmic (eye) BID PRN lisinopril 10 mg tablet 10 mg PO DAILY Qty: 90 3RF simvastatin 10 mg tablet 10 mg PO QPM Qty: 90 3RF Discharge Orders: Discharge Order (Routine); Ordered 01/23/23 Ordered By: Mabel Perdomo Patient Education: Colectomy (DC) Additional Instructions: You were prescribed a narcotic pain medication. In addition you may supplement with Tylenol and/or ibuprofen. Be sure to not exceed greater than 4 g of Tylenol in a 24 hour period. While on narcotic pain medicine please take stool softeners for constipation. Stop if having greater than 2 stools per day. You can shower. Do not soak in a bath or swim for 2 weeks. Allow Steri-Strips to come off on their own. You were also prescribed an injection of a low-dose blood thinner - this is to prevent blood clots in the first month after surgery. Nursing will show you how to administer this to yourself every day. Follow up: You will follow up with Dr. Perdomo in 2 weeks at the [facility]. Activity Level: No strenuous activity Activity Detail: Activity as tolerated. Avoid strenuous activity. No lifting greater than 20 lb for 6 weeks. Discharge Diet: Regular Follow Up Appointments: Mabel Perdomo MD [Staff Physician] - (Two week follow-up, [facility]) Dionisio Mendoza MD [Primary Care Provider] - Forms: [employer] Info Instructions
[2023-01-23] MEDS: SENNOSIDES/DOCUSATE TABLET 1 TAB PO (12:43)
[2023-01-23] MEDS: ENOXAPARIN 40 MG/0.4 ML INJ SUBCUT (13:34)
[2023-01-23] MEDS: HYDROCODONE-ACETAMIN 5-325 MG 1 TAB PO (13:35)
--- NOTE | 2023-01-23 15:56 | PC.NURSE ---
Discharge note: The patient discharged home with her son this afternoon.All questions were answered... discharge instructions were reviewed thoroughly. I educated her on how to preform her Lovenox injections.. she then preformed the skill for me today prior to discharge. No Iv's present upon discharge. The patient had 1 BM yesterday.. stool softener was given prior to discharge as well. All prescriptions sent to [facility] in [place] the patient will pick them up tomorrow. Follow up appointment was scheduled with Dr Perdomo. 3 lap sites with steri strips CDI with no drainage. Midline incision with mild ecchymosis and steri strips as well. Pain is well tolerated with [place] and Tylenol for abdominal pain.
== END 2023-01-23 14:05 | disposition home or self-care (01) | DRG 331 ==
PROVIDERS: Admitting Provider Surgery; PCP Family Medicine; Visit Provider Surgery
PROC: 0DTF4ZZ Resection of Right Large Intestine, Percutaneous Endoscopic Approach (ICD-10-PCS; principal; 2023-01-20 08:30)
DX: C18.2 Malignant neoplasm of ascending colon (principal); I95.81 Postprocedural hypotension; R42 Dizziness and giddiness; I10 Essential (primary) hypertension; E78.5 Hyperlipidemia, unspecified; E04.1 Nontoxic single thyroid nodule; G25.81 Restless legs syndrome; M85.80 Other specified disorders of bone density and structure, unspecified site
CPT/HCPCS: 00790; 00840; 36415; 51798; 76942; 80048; 81003; 81015; 85018; 85025; 87086; 88341; 88342; 93005; 99100; A9270; J0665; J1100; J1170; J1335; J1650; J2250; J2371; J2405; J2704; J2710; J3010; J3475; J7120

== ENCOUNTER 2023-02-09 10:36 | Outpatient (RCR) | payer MEDICARE, SELFPAY | END 2023-08-08 23:59 | disposition home or self-care (01) | LOC: CCIC 10:36 | PROVIDERS: PCP Family Medicine; Visit Provider Internal Medicine Hematology & Oncology | DX: C18.9 Malignant neoplasm of colon, unspecified (principal); Z90.49 Acquired absence of other specified parts of digestive tract | CPT/HCPCS: 99202; 99205; 99212 ==

== ENCOUNTER 2023-11-07 07:40 | Outpatient (CLI) | payer MEDICARE, SELFPAY ==
--- OUTSIDE RECORDS SUMMARY | 2023-11-08 11:42 | XMS_ITS | Referral Summary ---
Author Organization [facility] Address [address] [place] [address]. [place] [address] Care Team Providers Care Cooling Tower Technician Name Role Phone Abby Rock PA-C Primary Care Pro vider Allergies No known active allergies Medications Medication Sig Dispensed Refills Start Date End Date Status calcium-vitamin D-vitamin K (VIACTIV) 500-500-40 MG-UNT-MCG CHEWIndications:Oste openia, unspecified location Take 2 tablets by mouth daily 0 11/17/2016 Active calcium-vitamin D-vitamin K (VIACTIV) 500-500-40 MG-UNT-MCG CHEW Take 1 tablet by mouth daily Calcium component is 650mg not 500mg as listed above 09/19/2018 Active lisinopril (ZESTRIL) 10 MG tabletIndications:Hy pertension goal BP (blood pressure) < 130/80 take 1 tablet by mouth daily. 30 tablet 10/07/2020 Active simvastatin (ZOCOR) 10 MG tabletIndications:Hy perlipidemia LDL goal <130 TAKE ONE TABLET BY MOUTH AT BEDTIME 30 tablet 10/07/2020 Active Active Problems Problem Noted Date Diagnosed Date Family history of colon cancer in father - age 8 2 09/13/2017 Hyperlipidemia LDL goal <130 05/23/2017 Hypertension goal BP (blood pressure) < 130/80 0 05/23/2017 CARDIOVASCULAR SCREENING; LDL GOAL LESS THAN 160 09/13/2016 History of colonic polyps 09/13/2016 Overview: Colonoscopy 03/19/2013 - Tubular adenoma; repeat in 5 yrs. Osteopenia - repeat in 5 years 09/13/2016 Post-menopause 09/13/2016 Resolved Problems Problem Noted Date Diagnosed Date Resolved Date Hypertension goal BP (blood pressure) < 140/90 10/20/2016 05/23/2017 Advanced directives, counseling/discussion 09/13/2016 09/25/2018 Immunizations Name Administration Dates Next Due [id number] Novel Flu 05/22/2009 Influenza (H1N1) 05/22/2009 Influenza (High Dose) 3 spring nt vaccine 01/07/2020,12/06/2018,12/22/2016,2015 Influenza (IIV3) PF 12/22/2015,12/13/2012,2009 Influenza, seasonal, injectable, PF 12/19/2009 Pneumo Conj 13-V (2010&after) 12/22/2015 Pneumococcal 23 valent 12/22/2016 TDAP Vaccine (Boostrix) 12/25/2012 Zoster recombinant adjuvante d (SHINGRIX) 02/10/2018,12/11/2017 Social History Tobacco Use Types Packs/Day Years Used Date Smoking Tobacco: Former Cigarettes 1.5 10 0 11/13/1980 - 11/13/1990 Smokeless Tobacco: Never Tobacco Cessation:Counseling Given: No Alcohol Use Standard Drinks/Week Comments No 0 (1 standard drink = 0.6 oz pur e alcohol) PHQ-2 Answer Date Recorded PHQ-2 Score 0 10/26/2019 Adolescent Education Answer Date Record ed Getting School Help Needed Not on file 12/31 Sex and Gender Information Value Date Recorded Sex Assigned at Not on file Gender Identity Not on file Sexual Orientation Not on file Last Filed Vital Signs Vital Sign Reading Time Taken Comments Blood Pressure 112/70 10/26/2019 11:03 AM CDT Pulse 90 10/26/2019 11:03 AM CDT Temperature 37.1 ??C (98.7 ??F) 10/26/2019 10:35 AM C DT Respiratory Rate 15 10/11/2017 9:38 AM CDT Oxygen Saturation 94% 10/26/2019 10:35 AM CDT Inhaled Oxygen Concentration - - Weight 51.7 kg (114 lb) 10/26/2019 10:35 AM CDT Height 149.9 cm (4' 11) 10/26/2019 10:35 AM CDT Body Mass Index 23.03 10/26/2019 10:35 AM CDT Plan of Treatment Not on file Advance Directives For more information, please contact: [phone] Documents on File Type Date Recorded Patient Mental Health Clinician Expl anation Advance Directives and Living Will 09/25/2018 12:21 PM Health Care Directiv e 09/11/2018 Healthcare Agents on File Name Relationship Healthcare Agent Relationship Communication Corona Tony) Rochelle Son Health Care Agent Good Byrd Son First Alternate Health Care Agent Care Teams Cooling Tower Technician Relationship Specialty Start Date End Date Abby Rock PA-C PCP - General Physician Resource Manager - Medical 11/14/15
--- OUTSIDE RECORDS SUMMARY | 2023-11-08 11:42 | XMS_ITS | Clinical Summary ---
Author Organization [facility] Address [place], [place] [address] Care Team Providers Care Vacuum Drier Tender Name Role Phone Saritha Nunez Primary Care Provider + Allergies No known active allergies Medications Medication Sig Dispensed Refills Start Date End Date Status hydrocortisone valerate (WESTCORT) 0.2 % creamIndications:Cont act dermatitis Apply topically to affected area(s) 2 times daily. 30 g 1 10/24/2013 Active Active Problems No known active problems Immunizations Name Administration Dates Next Due Influenza A (H1N1), Inactivated (Age >=3 Years) 05/22/2009 Influenza, IIV3 (Age >=3 years) 12/13/2012,12/19 Tdap 12/25/2012 Family History Medical History Relation Name Comments Cancer-colon Father Cancer-breast Paternal Grandmother Cancer-ovarian No Family History Cancer-prostate No Family History Relation Name Status Comments Father Paternal Grandmother Social History Tobacco Use Types Packs/Day Years Used Date Smoking Tobacco: Former Cigarettes Q uit: 05/12/1990 Smokeless Tobacco: Never Tobacco Cessation:Counseling Given: No Alcohol Use Standard Drinks/Week Comments No 0 (1 standard drink = 0.6 oz pur e alcohol) Sex and Gender Information Value Date Recorded Sex Assigned at Not on file Gender Identity Not on file Sexual Orientation Not on file Obstetrics History Last Filed Vital Signs Vital Sign Reading Time Taken Comments Blood Pressure 120/70 10/24/2013 10:00 AM CDT Pulse 88 10/24/2013 10:00 AM CDT Temperature 36.9 ??C (98.4 ??F) 03/12/2013 9:50 AM CS T Respiratory Rate 16 03/19/2013 12:35 PM ORDNANCE TRUCK INSTALLATION SUPERVISOR Oxygen Saturation 99% 03/19/2013 12:35 PM ORDNANCE TRUCK INSTALLATION SUPERVISOR Inhaled Oxygen Concentration - - Weight 55.8 kg (123 lb) 10/24/2013 10:00 AM CDT Height 149.9 cm (4' 11) 03/19/2013 10:57 AM ORDNANCE TRUCK INSTALLATION SUPERVISOR Body Mass Index 24.84 03/19/2013 10:57 AM ORDNANCE TRUCK INSTALLATION SUPERVISOR Plan of Treatment Health Maintenance Due Date Last Done Comments Depression screening for age 12+ 1961 BMI (ht and wt on same day) for age 18+ 11/04/1967 Hepatitis C screening for age 18-79 11/04/1967 Zoster (shingles) series for age 50+ (1 of 2) 11/04/1999 Mammogram for age 45-75 03/20/2014 03/20/2013, 03/12 DEXA/DXA scan for age 65+ 2014 03/12/2013 Pneumococcal series for age 65+ (1 of 1 - PCV) 2014 Lipids for age 45-75 03/12/2018 03/12/2013 Colonoscopy through age 75 03/19/201803/19 (Completed outside of [facility]) COVID-19 vaccine series (2022-24 season) 2022 Tetanus booster 12/25/2022 12/25/2012 Influenza for age 65+ 12/11/2023 12/13/2012 , 12/19/2009, 05/22/2009 Tdap Completed 12/25/2012 Procedures Procedure Name Priority Date/Time Associated Diagnosis Comments XR MAMMO UNI DIAG FFDM RIGHT (IA) Routine 03/20/2013 10:21 AM ORDNANCE TRUCK INSTALLATION SUPERVISOR Abnormal mammogram XR DXA BONE DENSITY 2 SITES AXIAL Routine 03/12/2013 11:23 AM ORDNANCE TRUCK INSTALLATION SUPERVISOR Postmenopausal LIPID PANEL W REFLEX MEASURED LDL Routine 03/12/2013 10:29 AM ORDNANCE TRUCK INSTALLATION SUPERVISOR Routine general medical examination at a health care facility from Last 3 Months or Most Recently Relevant to Health Maintenance Results * XR MAMMO UNI DIAG FFDM RIGHT (03/20/2013 10:21 AM ORDNANCE TRUCK INSTALLATION SUPERVISOR) Anatomical Region Laterality Modality BREASTS, Breast Right Right Mammograph y Impressions 03/20/2013 11:32 AM ORDNANCE TRUCK INSTALLATION SUPERVISOR ??Benign-appearing cyst accounts for mammographic finding. ??No evidence of malignancy. ?? ACR 2 Benign Finding(s) RECOMMENDATION: ??Resume annual screening mammography. Katia Peters M.D. Breast/Body Radiologist [email or web address] [facility]/jr Narrative 03/20/2013 11:32 AM ORDNANCE TRUCK INSTALLATION SUPERVISOR ADDITIONAL VIEWS DIAGNOSTIC RIGHT MAMMOGRAM RIGHT BREAST ULTRASOUND CLINICAL HISTORY: ??Abnormal screening mammogram. ? TECHNIQUE: ??Spot CC, spot MLO and 90-degree true lateral views of the RIGHT breast are obtained using digital technique. ??RIGHT breast ultrasound performed with realtime scanning and image documentation. ?? FINDINGS: ??Asymmetry in the central aspect of the RIGHT breast re-demonstrated on additional diagnostic mammographic images performed today. ??Focused ultrasound has been performed which demonstrates a benign-appearing cyst 7:00 position 2 cm from the nipple. ??It measures 0.5 x 0.2 x 0.4 cm. ??It is felt to correspond to mammographic finding. ?? Procedure Note Katia Peters MD - 03/20/2013 ADDITIONAL VIEWS DIAGNOSTIC RIGHT MAMMOGRAM RIGHT BREAST ULTRASOUND CLINICAL HISTORY: Abnormal screening mammogram. TECHNIQUE: Spot CC, spot MLO and 90-degree true lateral views of theRIGHT breast are obtained using digital technique. RIGHT breastultrasound performed with realtime scanning and image documentation. FINDINGS: Asymmetry in the central aspect of the RIGHT breastre-demonstrated on additional diagnostic mammographic images performedtoday. Focused ultrasound has been performed which demonstrates abenign-appearing cyst 7:00 position 2 cm from the nipple. It measures 0.5x 0.2 x 0.4 cm. It is felt to correspond to mammographic finding. IMPRESSION: Benign-appearing cyst accounts for mammographic finding. Noevidence of malignancy. ACR 2 Benign Finding(s) RECOMMENDATION: Resume annual screening mammography. Katia Peters M.D. Breast/Body Radiologist [email or web address] [facility]/ Saritha MEDEIROS MAMMO * XR DXA BONE DENSITY 2 SITES (03/12/2013 11:23 AM ORDNANCE TRUCK INSTALLATION SUPERVISOR) Anatomical Region Laterality Modality Spine, HIPS, HIPL, HIPR Computed Radiography Narrative 03/13/2013 7:05 AM ORDNANCE TRUCK INSTALLATION SUPERVISOR Your patient WENCESLAO HAMM completed a BMD test on 03/12/2013 using the [employer] DXA System (analysis version: [employer]) manufactured by [employer]. ??The following summarizes the results of our evaluation. PATIENT BIOGRAPHICAL: Name: WENCESLAO HAMM Date: 1950 Height: 59.0 in. Gender: Female Exam Date: 03/12/2013 Weight: 118.0 lbs. Indications: Family history of osteoporosis., History of Smoking., hysterectomy. Fractures: ?? Treatments: ?? ASSESSMENT: The BMD measured at Femur Total Right is 0.859 g/cm?? with a T-score of -1.2. ??This patient is considered osteopenic according to World Health Organization (WHO) criteria. ??Bone density is between 10 and 25% below young normal. ??Fracture risk is moderate. ??Treatment is advised. Site Region Measured Measured WHO Young Adult BMD ??Date Age Classification T-score ?? AP Spine L1-L4 03/12/2013 63.3 Normal -0.9 1.071 g/cm? DualFemur Neck Left 03/12/2013 63.3 Osteopenia -1.1 0.883 g/cm? DualFemur Neck Right 03/12/2013 63.3 Normal -0.8 0.923 g/cm? DualFemur Total Left 03/12/2013 63.3 Normal -0.8 0.913 g/cm? DualFemur Total Right 03/12/2013 63.3 Osteopenia -1.2 0.859 g/cm? World Health Organization (WHO) criteria for post-menopausal, Women: Normal: T-score at or above -1 SD Osteopenia: T-score between -1 and -2.5 SD Osteoporosis: T-score at or below -2.5 SD RECOMMENDATIONS: NOF Guidelines recommend people with T-scores between -1 and -2.5 (osteopenia) consider taking an osteoporosis medication when they have certain risk factors. ??Hormone therapy may be an option based on review of risks and benefits of treatment. ??All patients should ensure an adequate intake of dietary calcium and vitamin D. ?? FOLLOW-UP: People with diagnosed cases of osteoporosis or at high risk for fracture should have regular bone mineral density tests. ??For patients eligible for Medicare, routine testing is allowed once every 2 years. ??The testing frequency can be increased to one year for patients who have rapidly progressing disease, those who are receiving or discontinuing medical therapy to restore bone mass, or have additional risk factors. Based on these results, a follow-up exam is recommended in March 2015 Procedure Note Radha Pollack MD - 03/13/2013 Your patient WENCESLAO HAMM completed a BMD test on 03/12/2013 using theM[employer] 1 [employer] DXA System (analysis version: 13.60) manufactured by [employer]. The following summarizes the results of our evaluation. PATIENT BIOGRAPHICAL: Name: WENCESLAO HAMM Date: 1950 Height: 59.0 in. Gender: Female Exam Date: 03/12/2013 Weight: 118.0 lbs. Indications: Family history of osteoporosis., History of Smoking.,hysterectomy. Fractures: Treatments: ASSESSMENT: The BMD measured at Femur Total Right is 0.859 g/cm?? with a T-score of-1.2. This patient is considered osteopenic according to World HealthOrganization (WHO) criteria. Bone density is between 10 and 25% belowyoung normal. Fracture risk is moderate. Treatment is advised. Site Region Measured Measured WHO Young Adult BMD Date Age Classification T-score AP Spine L1-L4 03/12/2013 63.3 Normal -0.9 1.071 g/cm?? DualFemur Neck Left 03/12/2013 63.3 Osteopenia -1.1 0.883 g/cm?? DualFemur Neck Right 03/12/2013 63.3 Normal -0.8 0.923 g/cm?? DualFemur Total Left 03/12/2013 63.3 Normal -0.8 0.913 g/cm?? DualFemur Total Right 03/12/2013 63.3 Osteopenia -1.2 0.859 g/cm?? World Health Organization (WHO) criteria for post-menopausal, CaucasianWomen: Normal: T-score at or above -1 SD Osteopenia: T-score between -1 and -2.5 SD Osteoporosis: T-score at or below -2.5 SD RECOMMENDATIONS: NOF Guidelines recommend people with T-scores between -1 and -2.5(osteopenia) consider taking an osteoporosis medication when they havecertain risk factors. Hormone therapy may be an option based on review ofrisks and benefits of treatment. All patients should ensure an adequateintake of dietary calcium and vitamin D. FOLLOW-UP: People with diagnosed cases of osteoporosis or at high risk for fractureshould have regular bone mineral density tests. For patients eligible forMedicare, routine testing is allowed once every 2 years. The testingfrequency can be increased to one year for patients who have rapidlyprogressing disease, those who are receiving or discontinuing medicaltherapy to restore bone mass, or have additional risk factors. Based on these results, a follow-up exam is recommended in March 2015 Saritha MEDEIROS DEXA * (ABNORMAL) LIPID PANEL W REFLEX MEASURED LDL (03/12/2013 10:29 AM ORDNANCE TRUCK INSTALLATION SUPERVISOR) CHOLESTEROL,TOTA L 216(H) 100 - 199 mg/dL [facility] TRIGLYCERIDES 73 <150 mg/dL [facility] HDL CHOLESTEROL 54 >40 mg/dL [facility] CHOL/HDL RATIO 4.00 <4.50 [facility] NON-HDL CHOLESTEROL 162 Undefined mg/dL [facility] LDL CHOLESTEROL 147(H) <131 mg/dL [facility] PATIENT STATUS Fasting [facility] Blood specimen (specimen) BLOOD SPECIMEN / Unknown 03/12/2013 10:29 AM ORDNANCE TRUCK INSTALLATION SUPERVISOR 03/12/2013 10:22 AM ORDNANCE TRUCK INSTALLATION SUPERVISOR Saritha MEDEIROS CHEMISTRY [facility] [place] [address]IP [id number] [place] [address] from Last 3 Months or Most Recently Relevant to Health Maintenance Advance Directives * Full Code (Latest Code Status on File) Date Activated Date Inactivated Comments 03/19/2013 10:41 AM 03/19/2013 8:36 PM Care Teams Vacuum Drier Tender Relationship Specialty Start Date End Date Saritha Nunez PA PCP - General Family Practice 10/14/11
--- OUTSIDE RECORDS SUMMARY | 2023-11-08 11:42 | XMS_ITS | Encounter Summary ---
Author Organization [facility] Address [address] [place] [address]. [place] [address] Care Team Providers Care Dye Operator Name Role Phone Abby Rock PA-C Primary Care Pro vider Abby RockC Unavailable Abby RockC Unavailable Reason for Visit * Reason Comments Medication Refill Encounter Details Date Type Department Care Team (Late st Contact Info) Description 10/06/2020 Refill [facility] [address] [place] [address] Abby Rock PA-C [address] [place] [address] Medication Refill Social History Tobacco Use Types Packs/Day Years Used Date Smoking Tobacco: Former Cigarettes 1.5 10 0 11/13/1980 - 11/13/1990 Smokeless Tobacco: Never Alcohol Use Standard Drinks/Week Comments No 0 (1 standard drink = 0.6 oz pur e alcohol) PHQ-2 Answer Date Recorded PHQ-2 Score 0 10/26/2019 Sex and Gender Information Value Date Recorded Sex Assigned at Not on file Gender Identity Not on file Sexual Orientation Not on file documented as of this encounter Miscellaneous Notes * Telephone Encounter - Shannon Chan RN - 10/07/2020 1:07 PM CDT Due for an Office visit for further refills, only fill for 30 days Shannon Chan RN, BSN [facility] Triage documented in this encounter Plan of Treatment Not on file documented as of this encounter Visit Diagnoses Diagnosis Hypertension goal BP (blood pressure) < 130/80 Unspecified essential hypertension Hyperlipidemia LDL goal <130 Other and unspecified hyperlipidemia documented in this encounter Care Teams Dye Operator Relationship Specialty Start Date End Date Abby Rock PA-C PCP - General Physician Brass Wind Instrument Maker - Medical 11/14/15 Abby Rock PA-C [address] [place] [address] Assigned PCP 09/24/18 03/26/22 Abby Rock PA-C [address] [place] [address] Assigned PCP 06/05/22 10/29/22 documented as of this encounter
--- OUTSIDE RECORDS SUMMARY | 2023-11-08 11:42 | XMS_ITS | Clinical Summary ---
Author Organization [facility] Address [address] [place] [address]. [place] [address] Care Team Providers Care Meat Carver Name Role Phone Abby Rock PA-C Primary [...] 09/25/2018 Immunizations Name Administration Dates Next Due [id number] Novel Flu 05/22/2009 Influenza (H1N1) 05/22/2009 Influenza (High Dose) 3 spring nt vaccine 01/07/2020,12/06/2018,12/22/2016,2015 Influenza (IIV3) PF 12/22/2015,12/13/2012,2009 Influenza, seasonal, injectable, PF 12/19/2009 Pneumo Conj 13-V (2010&after) 12/22/2015 Pneumococcal 23 valent 12/22/2016 TDAP Vaccine (Boostrix) 12/25/2012 Zoster recombinant adjuvante d (SHINGRIX) 02/10/2018,12/11/2017 Family History Medical History Relation Comments Colon Cancer Father Hypertension Father Breast Cancer Paternal Grandmother Cerebrovascular Disease No family hx of Coronary Artery Disease No family hx of Diabetes No family hx of Hyperlipidemia No family hx of Relation Status Comments Father Paternal Grandmother Social History [...] Advance Directives For more information, please contact: [phone] Documents on File Type Date Recorded Patient Gunstock Spray Unit Adjuster Expl anation Advance Directives and Living Will 09/25/2018 12:21 PM Health Care Directiv e 09/11/2018 Healthcare Agents on File Name Relationship Healthcare Agent Relationship Communication Corona Tony) Rochelle Son Health Care Agent Good Byrd Son First Alternate Health Care Agent Care Teams Meat Carver Relationship Specialty Start Date End Date Abby Rock PA-C PCP - General Physician Porcelain Enameler - Medical 11/14/15
--- OUTSIDE RECORDS SUMMARY | 2023-11-08 11:42 | XMS_ITS | Encounter Summary ---
Author Organization [facility] Address [address] [place] [address]. [place] [address] Care Team Providers Care Title Investigator Name Role Phone Abby Rock PA-C Primary Care Pro vider Abby Rock PA-C Unavailable Abby Rock PA-C Unavailable Reason for Visit * Reason Comments Medication Refill Encounter Details Date Type Department Care Team (Late st Contact Info) Description 10/25/2019 Refill [facility] [address] [place] [address] Abby Rock PA-C [address] [place] [address] Medication Refill Social History Tobacco [...] on file Sexual Orientation Not on file COVID-19 Exposure Response Date Recorded In the last month, have you been in contact with someone who was confirmed or suspected to have Coronavirus / COVID-19? No / Unsure 10/26/2019 10:21 AM CDT documented as of this encounter Miscellaneous Notes * Telephone Encounter - Abby Rock PA-C - 10/25/2019 4:01 PM CDT Renewed since has appt scheduled for tomorrow. * Telephone Encounter - Mara Nails RN - 10/25/2019 3:04 PM CDT Failed labs- has pending appointment tomorrow documented in this encounter Plan of Treatment Not on file documented as of this encounter Visit Diagnoses Diagnosis Hypertension goal BP (blood pressure) < 130/80 Unspecified essential hypertension documented in this encounter Care Teams Title Investigator Relationship Specialty Start Date End Date Abby Rock PA-C PCP - General Physician Pigment Making Supervisor - Medical 11/14/15 Abby Rock PA-C [address] [place] [address] Assigned PCP 09/24/18 03/26/22 Abby Rock PA-C [address] [place] [address] Assigned PCP 06/05/22 10/29/22 documented as of this encounter
== END 2023-11-07 07:41 | disposition home or self-care (01) ==
LOC: NFLDREF 11-08 11:41
PROVIDERS: PCP Internal Medicine; Referring Provider Internal Medicine; Visit Provider Internal Medicine
DX: I10 Essential (primary) hypertension (principal); E78.00 Pure hypercholesterolemia, unspecified; E78.5 Hyperlipidemia, unspecified
CPT/HCPCS: 80053; 80061

== ENCOUNTER 2023-12-14 12:39 | Outpatient (CLI) | payer MEDICARE, SELFPAY ==
--- OUTSIDE RECORDS SUMMARY | 2023-12-14 12:41 | XMS_ITS | Clinical Summary ---
Author Organization [facility] Address [address] [place] [address]. [place] [address] Care Team Providers Care Police Shift Commander Name Role Phone Abby Rock PA-C Primary [...] 09/25/2018 Immunizations Name Administration Dates Next Due [id number] Novel Flu 05/22/2009 Influenza (H1N1) 05/22/2009 Influenza (High Dose) Trival ent,PF (Fluzone) 01/07/2020,12/06/2018,12/22/2016,2015 Influenza (IIV3) PF 12/22/2015,12/13/2012,2009 Influenza, seasonal, [...] Advance Directives For more information, please contact: [phone] Documents on File Type Date Recorded Patient High Pressure Boiler Operator Expl anation Advance Directives and Living Will 09/25/2018 12:21 PM Health Care Directiv e 09/11/2018 Healthcare Agents on File Name Relationship Healthcare Agent Relationship Communication Corona Tony) Rochelle Son Health Care Agent Good Byrd Son First Alternate Health Care Agent Care Teams Police Shift Commander Relationship Specialty Start Date End Date Abby Rock PA-C PCP - General Physician Joint Setter - Medical 11/14/15
--- OUTSIDE RECORDS SUMMARY | 2023-12-14 12:41 | XMS_ITS | Encounter Summary ---
Author Organization [facility] Address [address] [place] [address]. [place] [address] Care Team Providers Care Project Analyst Name Role Phone Abby Rock PA-C Primary Care Pro vider Abby Rock PA-C Unavailable Abby Rock PA-C Unavailable Reason for Visit * Reason Comments Medication Refill Encounter Details Date Type Department Care Team (Late st Contact Info) Description 10/25/2019 Refill [facility] [address] [place] [address] Abby Rock PA-C [address] [place] [address] Medication Refill Social History Tobacco [...] hypertension documented in this encounter Care Teams Project Analyst Relationship Specialty Start Date End Date Abby Rock PA-C PCP - General Physician Practical Ministries Professor - Medical 11/14/15 Abby Rock PA-C [address] [place] [address] Assigned PCP 09/24/18 03/26/22 Abby Rock PA-C [address] [place] [address] Assigned PCP 06/05/22 10/29/22 documented as of this encounter
--- OUTSIDE RECORDS SUMMARY | 2023-12-14 12:41 | XMS_ITS | Encounter Summary ---
Author Organization [facility] Address [address] [place] [address]. [place] [address] Care Team Providers Care Escort Vehicle Driver Name Role Phone Abby Rock PA-C Primary Care Pro vider Abby RockC Unavailable Abby RockC Unavailable Reason for Visit * Reason Comments Medication Refill Encounter Details Date Type Department Care Team (Late st Contact Info) Description 10/06/[address] [facility] [address] [place] [address] Abby Rock PA-C [address] [place] [address] Medication Refill Social History Tobacco [...] for 30 days Shannon Chan RN, BSN [facility] Triage documented in this encounter Plan of Treatment Not on file documented as of this encounter Visit Diagnoses Diagnosis Hypertension goal BP (blood pressure) < 130/80 Unspecified essential hypertension Hyperlipidemia LDL goal <130 Other and unspecified hyperlipidemia documented in this encounter Care Teams Escort Vehicle Driver Relationship Specialty Start Date End Date Abby Rock PA-C PCP - General Physician Bundler - Medical 11/14/15 Abby Rock PA-C [address] [place] [address] Assigned PCP 09/24/18 03/26/22 Abby Rock PA-C [address] [place] [address] Assigned PCP 06/05/22 10/29/22 documented as of this encounter
--- OUTSIDE RECORDS SUMMARY | 2023-12-14 12:41 | XMS_ITS | Referral Summary ---
Author Organization [facility] Address [address] [place] [address]. [place] [address] Care Team Providers Care Route Clerk Name Role Phone Abby Rock PA-C Primary [...] 09/25/2018 Immunizations Name Administration Dates Next Due [id number] Novel Flu 05/22/2009 Influenza (H1N1) 05/22/2009 Influenza [...] Advance Directives For more information, please contact: [phone] Documents on File Type Date Recorded Patient Semi Driver Expl anation Advance Directives and Living Will 09/25/2018 12:21 PM Health Care Directiv e 09/11/2018 Healthcare Agents on File Name Relationship Healthcare Agent Relationship Communication Corona Tnoy) Rochelle Son Health Care Agent Good Byrd Son First Alternate Health Care Agent Care Teams Route Clerk Relationship Specialty Start Date End Date Abby Rock PA-C PCP - General Physician Film Recordist - Medical 11/14/15
--- OUTSIDE RECORDS SUMMARY | 2023-12-14 12:41 | XMS_ITS | Clinical Summary ---
Author Organization [facility] Address [place], [place] [address] Care Team Providers Care Transitions Rn Care Coordinator Name Role Phone Saritha Nunez Primary Care [...] T Respiratory Rate 16 03/19/2013 12:35 PM FUEL CELL SYSTEMS ENGINEER Oxygen Saturation 99% 03/19/2013 12:35 PM FUEL CELL SYSTEMS ENGINEER Inhaled Oxygen Concentration - - Weight 55.8 kg (123 lb) 10/24/2013 10:00 AM CDT Height 149.9 cm (4' 11) 03/19/2013 10:57 AM FUEL CELL SYSTEMS ENGINEER Body Mass Index 24.84 03/19/2013 10:57 AM FUEL CELL SYSTEMS ENGINEER Plan of Treatment Health Maintenance Due Date [...] through age 75 03/19/201803/19 (Completed outside of [facility]) Tetanus booster 12/25/2022 12/25/2012 COVID-19 vaccine series (2022- season) 2023 Influenza for age 65+ 12/11/2023 12/13/2012 , 12/19/2009, 05/22/2009 Tdap Completed 12/25/2012 Procedures Procedure Name Priority Date/Time Associated Diagnosis Comments XR MAMMO UNI DIAG FFDM RIGHT (IA) Routine 03/20/2013 10:21 AM FUEL CELL SYSTEMS ENGINEER Abnormal mammogram XR DXA BONE DENSITY 2 SITES AXIAL Routine 03/12/2013 11:23 AM FUEL CELL SYSTEMS ENGINEER Postmenopausal LIPID PANEL W REFLEX MEASURED LDL Routine 03/12/2013 10:29 AM FUEL CELL SYSTEMS ENGINEER Routine general medical examination at a health care facility from Last 3 Months or Most Recently Relevant to Health Maintenance Results * XR MAMMO UNI DIAG FFDM RIGHT (03/20/2013 10:21 AM FUEL CELL SYSTEMS ENGINEER) Anatomical Region Laterality Modality BREASTS, Breast Right Right Mammograph y Impressions 03/20/2013 11:32 AM FUEL CELL SYSTEMS ENGINEER ??Benign-appearing cyst accounts for mammographic finding. ??No evidence of malignancy. ?? ACR 2 Benign Finding(s) RECOMMENDATION: ??Resume annual screening mammography. Katia Peters M.D. Breast/Body Radiologist [facility] [email or web address].[email or web address] [place]jr Narrative 03/20/2013 11:32 AM FUEL CELL SYSTEMS ENGINEER ADDITIONAL VIEWS DIAGNOSTIC RIGHT MAMMOGRAM RIGHT BREAST [...] Peters M.D. Breast/Body Radiologist [facility] [email or web address].[facility] [place] Saritha MEDEIROS MAMMO * XR DXA BONE DENSITY 2 SITES (03/12/2013 11:23 AM FUEL CELL SYSTEMS ENGINEER) Anatomical Region Laterality Modality Spine, HIPS, HIPL, HIPR Computed Radiography Narrative 03/13/2013 7:05 AM FUEL CELL SYSTEMS ENGINEER Your patient WENCESLAO HAMM completed a BMD test on 03/12/2013 using the Compute DXA System (analysis version: Interactive Supercomputing) manufactured by [employer]. ??The following summarizes the results of our [...] completed a BMD test on 03/12/2013 using theCompute DXA System (analysis version: 13.60) manufactured by [employer]. The following summarizes the results of our [...] W REFLEX MEASURED LDL (03/12/2013 10:29 AM FUEL CELL SYSTEMS ENGINEER) CHOLESTEROL,TOTA L 216(H) 100 - 199 mg/dL [facility] TRIGLYCERIDES 73 <150 mg/dL [facility] HDL CHOLESTEROL 54 >40 mg/dL [facility] CHOL/HDL RATIO 4.00 <4.50 [facility] NON-HDL CHOLESTEROL 162 Undefined mg/dL [facility] LDL CHOLESTEROL 147(H) <131 mg/dL [facility] PATIENT STATUS Fasting [facility] Blood specimen (specimen) BLOOD SPECIMEN / Unknown 03/12/2013 10:29 AM FUEL CELL SYSTEMS ENGINEER 03/12/2013 10:22 AM FUEL CELL SYSTEMS ENGINEER Saritha MEDEIROS CHEMISTRY [facility] INTERNAL ZIP [id number] [place] [address] from Last 3 Months or Most Recently Relevant to Health Maintenance Advance Directives * Full Code (Latest Code Status on File) Date Activated Date Inactivated Comments 03/19/2013 10:41 AM 03/19/2013 8:36 PM Care Teams Transitions Rn Care Coordinator Relationship Specialty Start Date End Date Saritha Nunez PA PCP - General Family Practice 10/14/11
--- NOTE | 2023-12-14 13:00 | CRLHL7_ITS ---
For Patients: As a result of the Century Cures Act, medical imaging exams and procedure reports are released immediately into your electronic medical record. You may view this report before your referring provider. If you have questions, please contact your health care provider. DXA BONE MINERAL DENSITY STUDY Current height (in): 59. Weight (lb): 115. Menopause age: 55. Ethnicity: White. 1. Have you had a previous hip or vertebral fracture? No. 2. Have you had any fractures during your adult life which did not result from significant trauma (e.g., auto accident)? No. 3. Did either of your parents have a hip fracture? No. 4. Do you smoke? No. 5. Have you ever taken Glucocorticoids? No. 6. Do you have rheumatoid arthritis? No. 7. Do you have secondary osteoporosis? No. 8. Do you drink 3 or more alcoholic drinks per day? No. 9. Are you being treated for osteoporosis? No. 10. Have you ever taken any of the following medications: Actonel, Evista, Fosamax, Miacalcin, Reclast, Boniva, Forteo, HRT (i.e. estrogen/hormone therapy), Protelos, Prolia, Vitamin D, Calcium, other ??? please specify. ANSWER: Yes, calcium. 11. Do you have any of the following medical conditions: Anorexia or bulimia, asthma or emphysema, end stage renal disease, hyperparathyroidism, any seizure disorders, cancer, inflammatory bowel diseases, hysterectomy, other ??? please specify. ANSWER: Yes, cancer. 12. What was your maximum height (inches)? 59. 13. Do you perform weight bearing exercise regularly? No. 14. Do you regularly consume dairy products? Yes. 15. Do you drink caffeinated beverages? 16. At what age did your period start? 12. 17. Are you premenopausal? No. 18. How many full term pregnancies have you had? 2. 19. Have you ever missed your period for more than 6 months in a row (not including or menopause)? No. TECHNIQUE: Bone mineral density study was performed using the [employer]. FINDINGS: The results of the study expressed as bone mineral density (BMD) are as follows: Lumbar spine L1 to L3: BMD: 0.798 g/cm2. T-score: -2.0. Z-score: 0.3. Neck Left: BMD: 0.630 g/cm2. T-score: -2.0. Z-score: 0.1. Right: BMD: 0.742 g/cm2. T-score: -1.0. Z-score: 1.1. Total Left: BMD: 0.720 g/cm2. T-score: -1.8. Z-score: -0.1. Right: BMD: 0.758 g/cm2. T-score: -1.5. Z-score: 0.2. IMPRESSION: Osteopenia. *Comparison exams done prior to 09/2019 were performed on different unit, SQMOS. FRAX 10-year Fracture Risk Major Osteoporotic Fracture: 12 percent Hip Fracture: 2.9 percent Reported Risk Factors: [place] () Neck BMD=0.630, BMI=23.2 Obed Reilly M.D. Diagnostic Radiologist [facility] [email or web address]/Dictated by: Obed Reilly MD @ 12/14/2023 3:58:00 PM (Electronically Signed)
--- NOTE | 2023-12-14 14:00 | CRLHL7_ITS ---
For Patients: As a result of the Century Cures Act, medical imaging exams and procedure reports are released immediately into your electronic medical record. You may view this report before your referring provider. If you have questions, please contact your health care provider. INDICATION: Thyroid nodule COMPARISON: CT-PET 12/23/2022 TECHNIQUE: Gibson scale and color Doppler images were acquired of the thyroid gland. FINDINGS: Isthmus measures 2.1 millimeters. Mostly cystic nodule left thyroid lobe measures 2.5 x 1.5 x 1.6 cm. Solid and cystic nodule upper pole left thyroid lobe measures 8 x 4 x 6 millimeters. Mostly cystic nodules within the right thyroid lobe measure 13 x 6 x 10 millimeters and 14 x 10 x 12 millimeters. The right lobe measures 4.7 x 1.6 x 1.7 cm and the left lobe measures 4.7 x 1.8 x 2.0 cm in size. The color Doppler images demonstrate normal vascularity. There is no evidence of cervical lymphadenopathy or parathyroid mass. IMPRESSION: Bilateral mostly cystic thyroid nodules. FNA not indicated. Dictated by Obed Reilly MD @ 12/14/2023 3:53:44 PM (Electronically Signed)
== END 2023-12-14 12:40 | disposition home or self-care (01) ==
LOC: RAD 12:39
PROVIDERS: PCP Internal Medicine; Visit Provider Surgery
DX: M85.80 Other specified disorders of bone density and structure, unspecified site (principal); M85.89 Other specified disorders of bone density and structure, multiple sites; E04.1 Nontoxic single thyroid nodule
CPT/HCPCS: 76536; 77080

== ENCOUNTER 2023-12-19 06:25 | Outpatient (CLI) | payer MEDICARE, SELFPAY ==
--- OUTSIDE RECORDS SUMMARY | 2023-12-19 06:28 | XMS_ITS | Clinical Summary ---
Author Organization [facility] Address [place], [place] [address] Care Team Providers Care Glaze Mixer Name Role Phone Saritha Nunez Primary Care [...] T Respiratory Rate 16 03/19/2013 12:35 PM VACUUM CLEANER OPERATOR Oxygen Saturation 99% 03/19/2013 12:35 PM VACUUM CLEANER OPERATOR Inhaled Oxygen Concentration - - Weight 55.8 kg (123 lb) 10/24/2013 10:00 AM CDT Height 149.9 cm (4' 11) 03/19/2013 10:57 AM VACUUM CLEANER OPERATOR Body Mass Index 24.84 03/19/2013 10:57 AM VACUUM CLEANER OPERATOR Plan of Treatment Health Maintenance Due Date [...] Tetanus booster 12/25/2022 12/25/2012 COVID-19 vaccine series ( - 2022- season) 2023 Influenza for age 65+ 12/11/2023 12/13/2012 , 12/19/2009, 05/22/2009 Tdap Completed 12/25/2012 Procedures Procedure Name Priority Date/Time Associated Diagnosis Comments XR MAMMO UNI DIAG FFDM RIGHT (IA) Routine 03/20/2013 10:21 AM VACUUM CLEANER OPERATOR Abnormal mammogram XR DXA BONE DENSITY 2 SITES AXIAL Routine 03/12/2013 11:23 AM VACUUM CLEANER OPERATOR Postmenopausal LIPID PANEL W REFLEX MEASURED LDL Routine 03/12/2013 10:29 AM VACUUM CLEANER OPERATOR Routine general medical examination at a health care facility from Last 3 Months or Most Recently Relevant to Health Maintenance Results * XR MAMMO UNI DIAG FFDM RIGHT (03/20/2013 10:21 AM VACUUM CLEANER OPERATOR) Anatomical Region Laterality Modality BREASTS, Breast Right Right Mammograph y Impressions 03/20/2013 11:32 AM VACUUM CLEANER OPERATOR ??Benign-appearing cyst accounts for mammographic finding. ??No evidence of malignancy. ?? ACR 2 Benign Finding(s) RECOMMENDATION: ??Resume annual screening mammography. Katia Peters M.D. Breast/Body Radiologist [facility] [email or web address] [facility]/jr Narrative 03/20/2013 11:32 AM VACUUM CLEANER OPERATOR ADDITIONAL VIEWS DIAGNOSTIC RIGHT MAMMOGRAM RIGHT BREAST [...] Peters M.D. Breast/Body Radiologist [facility] [email or web address].[email or web address] [facility] [place]/ Saritha MEDEIROS MAMMO * XR DXA BONE DENSITY 2 SITES (03/12/2013 11:23 AM VACUUM CLEANER OPERATOR) Anatomical Region Laterality Modality Spine, HIPS, HIPL, HIPR Computed Radiography Narrative 03/13/2013 7:05 AM VACUUM CLEANER OPERATOR Your patient WENCESLAO HAMM completed a BMD test on 03/12/2013 using the 5 CUPS and some sugar DXA System (analysis version: [employer].com) manufactured by [employer]. ??The following summarizes the results of our [...] completed a BMD test on 03/12/2013 using the5 CUPS and some sugar DXA System (analysis version: 13.60) manufactured by [employer]. The following summarizes the results of our [...] bone mineral density tests. For [facility], routine testing is allowed once every 2 [...] W REFLEX MEASURED LDL (03/12/2013 10:29 AM VACUUM CLEANER OPERATOR) CHOLESTEROL,TOTA L 216(H) 100 - 199 mg/dL [facility] TRIGLYCERIDES 73 <150 mg/dL [facility] HDL CHOLESTEROL 54 >40 mg/dL [facility] CHOL/HDL RATIO 4.00 <4.50 [facility] NON-HDL CHOLESTEROL 162 Undefined mg/dL [facility] LDL CHOLESTEROL 147(H) <131 mg/dL [facility] PATIENT STATUS Fasting [facility] Blood specimen (specimen) BLOOD SPECIMEN / Unknown 03/12/2013 10:29 AM VACUUM CLEANER OPERATOR 03/12/2013 10:22 AM VACUUM CLEANER OPERATOR Saritha MEDEIROS CHEMISTRY [facility] INTERNAL ZIP [id number] [place] [address] from Last 3 Months or Most Recently Relevant to Health Maintenance Advance Directives * Full Code (Latest Code Status on File) Date Activated Date Inactivated Comments 03/19/2013 10:41 AM 03/19/2013 8:36 PM Care Teams Glaze Mixer Relationship Specialty Start Date End Date Saritha Nunez PA PCP - General Family Practice 10/14/11
--- OUTSIDE RECORDS SUMMARY | 2023-12-19 06:38 | XMS_ITS | Clinical Summary ---
Author Organization [facility] Address [address] [place] [address]. 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
--- OUTSIDE RECORDS SUMMARY | 2023-12-19 06:48 | XMS_ITS | Referral Summary ---
Author Organization [facility] Address [address] [place] [address]. [place] [address] Care Team Providers Care Product Technology Scientist Name Role Phone Abby Rock PA-C Primary [...] 09/25/2018 Immunizations Name Administration Dates Next Due [id number] Novel Flu 05/22/2009 Influenza (H1N1) 05/22/2009 Influenza [...] Advance Directives For more information, please contact: [phone] Documents on File Type Date Recorded Patient Developer Trading Systems Expl anation Advance Directives and Living Will 09/25/2018 12:21 PM Health Care Directiv e 09/11/2018 Healthcare Agents on File Name Relationship Healthcare Agent Relationship Communication Corona Tony) Rochelle Son Health Care Agent Good Byrd Son First Alternate Health Care Agent Care Teams Product Technology Scientist Relationship Specialty Start Date End Date Abby Rock PA-C PCP - General Physician Dentist/Owner - Medical 11/14/15
--- OUTSIDE RECORDS SUMMARY | 2023-12-19 06:56 | XMS_ITS | Encounter Summary ---
Author Organization [facility] Address [address] [place] [address]. [place] [address] Care Team Providers Care Greenhouse Worker Name Role Phone Abby Rock PA-C Primary Care Pro vider Abby RockC Unavailable Abby RockC Unavailable Reason for Visit * Reason Comments Medication Refill Encounter Details Date Type Department Care Team (Late st Contact Info) Description 10/06/2020 Refill [facility] [address] [place] [address] Abby Rock PA-C [address] [place] [address] Medication Refill Social History Tobacco [...] for 30 days Shannon Chan RN, BSN [facility] Triage documented in this encounter Plan of Treatment Not on file documented as of this encounter Visit Diagnoses Diagnosis Hypertension goal BP (blood pressure) < 130/80 Unspecified essential hypertension Hyperlipidemia LDL goal <130 Other and unspecified hyperlipidemia documented in this encounter Care Teams Greenhouse Worker Relationship Specialty Start Date End Date Abby Rock PA-C PCP - General Physician Powder Line Repairer - Medical 11/14/15 Abby Rock PA-C [address] [place] [address] Assigned PCP 09/24/18 03/26/22 Abby Rock PA-C [address] [place] [address] Assigned PCP 06/05/22 10/29/22 documented as of this encounter
--- OUTSIDE RECORDS SUMMARY | 2023-12-19 06:57 | XMS_ITS | Encounter Summary ---
Author Organization [facility] Address [address] [place] [address]. [place] [address] Care Team Providers Care Automobile Rental Representative Name Role Phone Abby Rock PA-C Primary Care Pro vider Abby Rock PA-C Unavailable Abby Rock PA-C Unavailable Reason for Visit * Reason Comments Medication Refill Encounter Details Date Type Department Care Team (Late st Contact Info) Description 10/25/2019 Refill [facility] [address] [place] [address] Abby Rock PA-C [address] [place] [address] Medication Refill Social History Tobacco [...] hypertension documented in this encounter Care Teams Automobile Rental Representative Relationship Specialty Start Date End Date Abby Rock PA-C PCP - General Physician Cath Lab - Medical 11/14/15 Abby Rock PA-C [address] [place] [address] Assigned PCP 09/24/18 03/26/22 Abby Rock PA-C [address] [place] [address] Assigned PCP 06/05/22 10/29/22 documented as of this encounter
--- NOTE | 2023-12-19 08:10 | P.ANES_ITS ---
Anesthesia Charges Start Date/Time Anesthesia Start Date: 12/19/23 Anesthesia Start Time: 07:30 Stop Date/Time Anesthesia Stop Date: 12/19/23 Anesthesia Stop Time: 08:02 Summary Extremes of Age - Over 70 or under 1: TEACHING PASTOR
--- NOTE | 2023-12-19 09:33 | W.ANESCHARGE ---
Anesthesia Charges Start Date/Time Anesthesia Start Date: 12/19/23 Anesthesia Start Time: 07:30 Stop Date/Time Anesthesia Stop Date: 12/19/23 Anesthesia Stop Time: 08:02 Summary Extremes of Age - Over 70 or under 1: MDA
== END 2023-12-19 06:26 | disposition home or self-care (01) ==
LOC: OP CLINIC 06:26
PROVIDERS: PCP Internal Medicine; Visit Provider Surgery
DX: Z85.038 Personal history of other malignant neoplasm of large intestine (principal); D12.4 Benign neoplasm of descending colon; K64.4 Residual hemorrhoidal skin tags; Z98.0 Intestinal bypass and anastomosis status
CPT/HCPCS: 00811; 45385; 88305; 99100; J2704

== ENCOUNTER 2024-01-09 14:12 | Outpatient (CLI) | payer MEDICARE, SELFPAY ==
--- OUTSIDE RECORDS SUMMARY | 2024-01-09 14:14 | XMS_ITS | Clinical Summary ---
Author Organization [facility] Address [address] [place] [address]. [place] [address] Care Team Providers Care Care Partner Name Role Phone Abby Rock PA-C Primary [...] 09/25/2018 Immunizations Name Administration Dates Next Due [id number] Novel Flu 05/22/2009 Influenza (H1N1) 05/22/2009 Influenza [...] Advance Directives For more information, please contact: [phone] Documents on File Type Date Recorded Patient Sand Shoveler Expl anation Advance Directives and Living Will 09/25/2018 12:21 PM Health Care Directiv e 09/11/2018 Healthcare Agents on File Name Relationship Healthcare Agent Relationship Communication Corona Tony) Rochelle Son Health Care Agent Good Byrd Son First Alternate Health Care Agent Care Teams Care Partner Relationship Specialty Start Date End Date Abby Rock PA-C PCP - General Physician Authors Motivational - Medical 11/14/15
--- OUTSIDE RECORDS SUMMARY | 2024-01-09 14:14 | XMS_ITS | Referral Summary ---
Author Organization [facility] Address [address] [place] [address]. [place] [address] Care Team Providers Care Registered Respiratory Technician Name Role Phone Abby Rock PA-C [...] 09/25/2018 Immunizations Name Administration Dates Next Due [id number] Novel Flu 05/22/2009 Influenza (H1N1) 05/22/2009 Influenza [...] Advance Directives For more information, please contact: [phone] Documents on File Type Date Recorded Patient Medical Surgical Tech Expl anation Advance Directives and Living Will 09/25/2018 12:21 PM Health Care Directiv e 09/11/2018 Healthcare Agents on File Name Relationship Healthcare Agent Relationship Communication Corona Tony) Rochelle Son Health Care Agent Good Byrd Son First Alternate Health Care Agent Care Teams Registered Respiratory Technician Relationship Specialty Start Date End Date Abby Rock PA-C PCP - General Physician Fan Engine Engineer - Medical 11/14/15
--- OUTSIDE RECORDS SUMMARY | 2024-01-09 14:14 | XMS_ITS | Encounter Summary ---
Author Organization [facility] Address [address] [place] [address]. [place] [address] Care Team Providers Care Assembler Deck And Hull Name Role Phone Abby Rock PA-C Primary Care Pro vider Abby RockC Unavailable Abby RockC Unavailable Reason for Visit * Reason Comments Medication Refill Encounter Details Date Type Department Care Team (Late st Contact Info) Description 10/06/2020 Refill [facility] [address] [place] [address] Abby Rock PA-C [address] [place] [address] Medication Refill Social History Tobacco [...] for 30 days Shannon Chan RN, BSN [facility] Triage documented in this encounter Plan of Treatment Not on file documented as of this encounter Visit Diagnoses Diagnosis Hypertension goal BP (blood pressure) < 130/80 Unspecified essential hypertension Hyperlipidemia LDL goal <130 Other and unspecified hyperlipidemia documented in this encounter Care Teams Assembler Deck And Hull Relationship Specialty Start Date End Date Abby Rock PA-C PCP - General Physician Gate Supervisor - Medical 11/14/15 Abby Rock PA-C [address] [place] [address] Assigned PCP 09/24/18 03/26/22 Abby Rock PA-C [address] [place] [address] Assigned PCP 06/05/22 10/29/22 documented as of this encounter
--- OUTSIDE RECORDS SUMMARY | 2024-01-09 14:14 | XMS_ITS | Encounter Summary ---
Author Organization [facility] Address [address] [place] [address]. [place] [address] Care Team Providers Care Training Development Director Name Role Phone Abby Rock PA-C Primary Care Pro vider Abby Rock PA-C Unavailable Abby Rock PA-C Unavailable Reason for Visit * Reason Comments Medication Refill Encounter Details Date Type Department Care Team (Late st Contact Info) Description 10/25/2019 Refill [facility] [address] [place] [address] Abby Rock PA-C [address] [place] [address] Medication Refill Social History Tobacco [...] hypertension documented in this encounter Care Teams Training Development Director Relationship Specialty Start Date End Date Abby Rock PA-C PCP - General Physician Edi Specialist - Medical 11/14/15 Abby Rock PA-C [address] [place] [address] Assigned PCP 09/24/18 03/26/22 Abby Rock PA-C [address] [place] [address] Assigned PCP 06/05/22 10/29/22 documented as of this encounter
--- OUTSIDE RECORDS SUMMARY | 2024-01-09 14:14 | XMS_ITS | Clinical Summary ---
Author Organization [facility] Address [place], [place] [address] Care Team Providers Care Packaging Associate Name Role Phone Saritha Nunez Primary Care [...] T Respiratory Rate 16 03/19/2013 12:35 PM CENTERLESS GRINDER OPERATOR Oxygen Saturation 99% 03/19/2013 12:35 PM CENTERLESS GRINDER OPERATOR Inhaled Oxygen Concentration - - Weight 55.8 kg (123 lb) 10/24/2013 10:00 AM CDT Height 149.9 cm (4' 11) 03/19/2013 10:57 AM CENTERLESS GRINDER OPERATOR Body Mass Index 24.84 03/19/2013 10:57 AM CENTERLESS GRINDER OPERATOR Plan of Treatment Health Maintenance Due [...] 12/25/2022 12/25/2012 COVID-19 vaccine series ( - 2023- season) 2023 Influenza for age 65+ 12/11/2023 12/13/2012 , 12/19/2009, 05/22/2009 Tdap Completed 12/25/2012 Procedures Procedure Name Priority Date/Time Associated Diagnosis Comments XR MAMMO UNI DIAG FFDM RIGHT (IA) Routine 03/20/2013 10:21 AM CENTERLESS GRINDER OPERATOR Abnormal mammogram XR DXA BONE DENSITY 2 SITES AXIAL Routine 03/12/2013 11:23 AM CENTERLESS GRINDER OPERATOR Postmenopausal LIPID PANEL W REFLEX MEASURED LDL Routine 03/12/2013 10:29 AM CENTERLESS GRINDER OPERATOR Routine general medical examination at a health care facility from Last 3 Months or Most Recently Relevant to Health Maintenance Results * XR MAMMO UNI DIAG FFDM RIGHT (03/20/2013 10:21 AM CENTERLESS GRINDER OPERATOR) Anatomical Region Laterality Modality BREASTS, Breast Right Right Mammograph y Impressions 03/20/2013 11:32 AM CENTERLESS GRINDER OPERATOR ??Benign-appearing cyst accounts for mammographic finding. ??No evidence of malignancy. ?? ACR 2 Benign Finding(s) RECOMMENDATION: ??Resume annual screening mammography. Katia Peters M.D. Breast/Body Radiologist [facility] [email or web address] [place]/jr Narrative 03/20/2013 11:32 AM CENTERLESS GRINDER OPERATOR ADDITIONAL VIEWS DIAGNOSTIC RIGHT MAMMOGRAM RIGHT [...] Peters M.D. Breast/Body Radiologist [facility] [email or web address] [place]/ Saritha MEDEIROS MAMMO * XR DXA BONE DENSITY 2 SITES (03/12/2013 11:23 AM CENTERLESS GRINDER OPERATOR) Anatomical Region Laterality Modality Spine, HIPS, HIPL, HIPR Computed Radiography Narrative 03/13/2013 7:05 AM CENTERLESS GRINDER OPERATOR Your patient WENCESLAO HAMM completed a BMD test on 03/12/2013 using the TruQC DXA System (analysis version: [employer]) manufactured by [employer]. ??The following summarizes the results of our [...] completed a BMD test on 03/12/2013 using theTruQC DXA System (analysis version: 13.60) manufactured by [employer]. The following summarizes the results of our [...] bone mineral density tests. [facility], routine testing is allowed once every 2 [...] W REFLEX MEASURED LDL (03/12/2013 10:29 AM CENTERLESS GRINDER OPERATOR) CHOLESTEROL,TOTA L 216(H) 100 - 199 mg/dL [facility] TRIGLYCERIDES 73 <150 mg/dL [facility] HDL CHOLESTEROL 54 >40 mg/dL [facility] CHOL/HDL RATIO 4.00 <4.50 [facility] NON-HDL CHOLESTEROL 162 Undefined mg/dL [facility] LDL CHOLESTEROL 147(H) <131 mg/dL [facility] PATIENT STATUS Fasting [facility] Blood specimen (specimen) BLOOD SPECIMEN / Unknown 03/12/2013 10:29 AM CENTERLESS GRINDER OPERATOR 03/12/2013 10:22 AM CENTERLESS GRINDER OPERATOR Saritha MEDEIROS CHEMISTRY [facility] [place] [address]IP [id number] [place] [phone] from Last 3 Months or Most Recently Relevant to Health Maintenance Advance Directives * Full Code (Latest Code Status on File) Date Activated Date Inactivated Comments 03/19/2013 10:41 AM 03/19/2013 8:36 PM Care Teams Packaging Associate Relationship Specialty Start Date End Date Saritha Nunez PA PCP - General Family Practice 10/14/11
--- NOTE | 2024-01-09 14:40 | CRLHL7_ITS ---
For Patients: As a result of the Century Cures Act, medical imaging exams and procedure reports are released immediately into your electronic medical record. You may view this report before your referring provider. If you have questions, please contact your health care provider. BILATERAL SCREENING MAMMOGRAM WITH COMPUTER-AIDED DETECTION AND TOMOSYNTHESIS TECHNIQUE: CC and MLO views were obtained. These mammographic images have been obtained using full-field digital technique. These mammographic images were interpreted with the benefit of computer-aided detection. Breast Tomosynthesis was used in this interpretation. COMPARISON FILM: 01/04/22, 11/20/19, 09/25/18. FINDINGS: There are scattered areas of fibroglandular density. IMPRESSION: There is no radiographic evidence for malignancy. ASSESSMENT: BI-RADS Category 2: Benign RECOMMENDATION: Routine screening mammogram in 1 year. A lay language report of this examination will be provided to the patient. Obed Reilly M.D. Diagnostic Radiologist [email or web address] SP/Dictated by: Obed Reilly MD @ 01/13/2024 10:33:00 AM (Electronically Signed)
== END 2024-01-09 14:13 | disposition home or self-care (01) ==
LOC: MAMMO 14:13
PROVIDERS: PCP Internal Medicine; Visit Provider Internal Medicine
DX: Z12.31 Encounter for screening mammogram for malignant neoplasm of breast (principal)
CPT/HCPCS: 77063; 77067

== ENCOUNTER 2024-11-19 07:50 | Outpatient (CLI) | payer MEDICARE, SELFPAY | END 2024-11-19 07:51 | disposition home or self-care (01) | LOC: NFLDREF 11-22 15:54 | PROVIDERS: PCP Internal Medicine; Referring Provider Internal Medicine; Visit Provider Internal Medicine | DX: I10 Essential (primary) hypertension (principal); E78.00 Pure hypercholesterolemia, unspecified; E78.5 Hyperlipidemia, unspecified | CPT/HCPCS: 80053; 80061 ==

== ENCOUNTER 2025-01-07 10:09 | Outpatient (CLI) | payer MEDICARE, SELFPAY | END 2025-01-07 10:10 | disposition home or self-care (01) | LOC: NFLDUCREF 10:09 | PROVIDERS: PCP Internal Medicine | DX: R21 Rash and other nonspecific skin eruption (principal) | CPT/HCPCS: 86618 ==

== ENCOUNTER 2025-01-31 08:49 | Outpatient (CLI) | payer MEDICARE, SELFPAY ==
--- NOTE | 2025-01-31 09:15 | CRLHL7_ITS ---
For Patients: As a result of the Century Cures Act, medical imaging exams and procedure reports are released immediately into your electronic medical record. You may view this report before your referring provider. If you have questions, please contact your health care provider. INDICATION: BILATERAL SCREENING MAMMOGRMA, ASYMPTOMATIC 74 Y/O FEMALE COMPARISON: 01/09/2024, 01/04/2022, 11/20/2019 TECHNIQUE: Digital mammogram in CC and MLO projections including computer-aided detection (CAD) and tomosynthesis. BREAST COMPOSITION: There are scattered areas of fibroglandular density. FINDINGS: No suspicious findings. ASSESSMENT: BI-RADS 2 Benign RECOMMENDATION: Annual screening mammogram. A lay language report of this examination will be provided to the patient. Dictated by: Obed Reilly MD @ 01/31/2025 11:40:27 (Electronically Signed)
--- NOTE | 2025-01-31 10:45 | CRLHL7_ITS ---
For Patients: As a result of the Cures Act, medical imaging exams and procedure reports are released immediately into your electronic medical record. You may view this report before your referring provider. If you have questions, please contact your health care provider. INDICATION: Nontoxic thyroid nodule COMPARISON: 12/14/2023 TECHNIQUE: Gibson scale and color Doppler images were acquired of the thyroid gland. FINDINGS: Mostly cystic nodule left thyroid lobe measures 2.7 x 1.6 x 1.7 cm, TR 2, previously measuring 1.5 x 1.6 x 2.5 cm. Mostly cystic nodule right thyroid lobe measures 1.4 x 1.0 x 1.2 cm, TR 2, previously measuring 1.4 x 1.0 x 1.2 cm. Additional mostly cystic nodule right thyroid lobe measures 1.4 x 0.7 x 1.1 cm, TR 2, previously measuring 1.0 x 0.6 x 1.3 cm. Isthmus measures 2.1 millimeters. The right lobe measures 4.8 x 1.8 x 1.8 cm and the left lobe measures 4.8 x 2.0 x 2.0 cm in size. The color Doppler images demonstrate normal vascularity. There is no evidence of cervical lymphadenopathy or parathyroid mass. IMPRESSION: Stable bilateral nodules. Dictated by Obed Reilly MD @ 01/31/2025 10:56:01 AM (Electronically Signed)
== END 2025-01-31 08:50 | disposition home or self-care (01) ==
LOC: MAMMO 08:49
PROVIDERS: PCP Internal Medicine; Visit Provider Internal Medicine
DX: Z12.31 Encounter for screening mammogram for malignant neoplasm of breast (principal); E04.1 Nontoxic single thyroid nodule
CPT/HCPCS: 76536; 77063; 77067